=== PATIENT | male | born 1955 | race Two or more races ===

== ENCOUNTER 2017-02-26 15:49 | Emergency (ER) | payer OTHER ==
[2017-02-26 17:31] VITALS: BP 132/74; PULSE 70; TEMP 97.8; BMI 31.5
[2017-02-26] MEDS ORDERED: KETOROLAC TROMETHAMINE 60 MG/2 ML VIAL IM ONE ×2 (18:15→18:17)
[2017-02-26] MEDS ORDERED: KETOROLAC TROMETHAMINE 60 MG/2 ML VIAL ONE (18:17)
[2017-02-26] MEDS ORDERED: KETOROLAC TROMETHAMINE 30 MG/1 ML VIAL ONE (18:19)
--- NOTE | 2017-02-26 18:23 | PDOC ---
"History of Present Illness - General Chief Complaint: Pain, Acute Stated Complaint: RT SHOULDER PAIN Time Seen by Provider: 02/26/17 18:01 History Source: Patient Exam Limitations: No Limitations - History of Present Illness Initial Comments: 02/26/17 18:17 My Chief Complaint: Right upper torso pain radiates to right chest wall since yesterday, nonproductive cough times. History of present illness: Patient is a 62-year-old male with a history of diabetes, asthma LA with pacemaker here today complaining of right lateral upper torso pain that radiates to right chest wall with movement. Patient reports that pain is worse with movement of the right arm or torso or deep breathing. Patient denies any shortness of breath. Patient has had moist cough for 4-5 days. Patient reports having a fever 1 week ago. Reports lifting 2 cases of water a 24 bottles yesterday. Patient reports that he went to work today due to some minor lifting the pain got worse as day progressed. Patient denies any neck pain or any radiation of pain down right arm. Patient denies any wheezing. 02/26/17 18:24 Timing/Duration: getting worse (RT. LATERAL TORSO) Severity: moderate Associated Symptoms: reports: cough (cough 4-5 days, productive 2 days ago greenish ), other (rt. upper torso tenderness radiates to rt. chest wall intermittent with movement) Past History - Past Medical History Allergies/Adverse Reactions: Allergies Allergy/AdvReac Type Severity Reaction Status Date / Time No Known Allergies Allergy Verified 02/26/17 17:24 Home Medications: Ambulatory Orders Insulin Aspart [Novolog Flexpen] 100 unit SQ ASDIR 07/10/15 Albuterol Sulfate Inhaler - [Ventolin HFA Inhaler -] 2 inh PO Q4H PRN #1 inh MDD 6 02/26/17 Canagliflozin [Invokana] 100 mg PO ASDIR 02/26/17 Cyclobenzaprine HCl [Flexeril 10 mg] 10 mg PO Q8H PRN #20 tablet MDD 3 02/26/17 Oxycodone HCl/Acetaminophen [Percocet 5-325 mg Tablet] 1 tab PO Q6H PRN #10 tablet MDD 4 02/26/17 Asthma: Yes Cardiac Disorders: Yes Diabetes: Yes - Surgical History Cardiac Surgery: Yes (PACEMAKER) - Immunization History Immunization Up to Date: Yes - Suicide/Smoking/Psychosocial Hx Smoking History: Never smoked Have you smoked in the past 12 months: No Information on smoking cessation initiated: No Hx Alcohol Use: No Drug/Substance Use Hx: No Substance Use Type: Alcohol Hx Substance Use Treatment: No Review of Systems - Review of Systems Able to Perform ROS?: Yes Constitutional: No: Symptoms Reported HEENTM: No: Symptoms Reported Respiratory: Yes: Cough (for 4-5 days ), Productive cough (2 days greenish ) Cardiac (ROS): Yes: Chest Pain (rt. upper chest wall with movement ) ABD/GI: No: Symptoms Reported : No: Symptoms Reported Musculoskeletal: Yes: Muscle Pain (rt. upper torso) Integumentary: No: Symptoms Reported Neurological: No: Symptoms reported *Physical Exam - Vital Signs Last Vital Signs Temp Pulse Resp BP Pulse Ox 97.8 F 70 16 132/74 100 02/26/17 17:24 02/26/17 17:24 02/26/17 17:24 02/26/17 17:24 02/26/17 17:24 - Physical Exam Comments: 02/26/17 18:26 General Appearance: Yes: Appropriately Dressed HEENT: positive: Normal ENT Inspection Neck: negative: Lymphadenopathy (R), Lymphadenopathy (L) Respiratory/Chest: positive: Chest Tender (right upper chest wall ), Lungs Clear , Normal Breath Sounds. negative: Respiratory Distress, Accessory Muscle Use, Labored Respiration, Rapid RR, Decreased Breath Sounds, Crackles, Rales, Rhonchi , Stridor, Wheezing, Hyperresonant, Dullness Cardiovascular: positive: Regular Rhythm, Regular Rate, S1, S2 Musculoskeletal: positive: Normal Inspection, Other (rt.lateral torso tenderness ). negative: CVA Tenderness, CVA Tenderness (R), CVA Tenderness (L), Decreased Range of Motion, Vertebral Tenderness Integumentary: positive: Normal Color Neurologic: positive: Fully Oriented, Alert, Responsive Medical Decision Making - Medical Decision Making 02/26/17 18:23 Patient is a 62-year-old male with a history of diabetes, LA with pacemaker here today complaining of right lateral upper torso pain that radiates to right chest wall with movement. Patient reports that pain is worse with movement of the right arm or torso or deep breathing. Patient denies any shortness of breath. Patient has had moist cough for 4-5 days. Patient reports having a fever 1 week ago. Reports lifting 2 cases of water a 24 bottles yesterday. Patient reports that he went to work today due to some minor lifting the pain got worse as day progressed. Patient denies any neck pain or any radiation of pain down right arm. Patient denies any wheezing. rt. upper torso muscular tenderness r/o infiltrate PLAN: toradol 30 mg IM now xray Chest PA/lateral negative for infiltrate flexeril 10 mg po now than every 8 hrs prn muscle spasm # 20 percocet 5mg /325 mg every 6 hrs prn # 10 tabs follow up PCP this week Search Terms: Boom Live, 1955 Search Date: 02/26/2017 06:56:41 PM This report was requested by: Shital Fairchild | Reference #: [id number] Others' Prescriptions Patient Name: Boom Live Date: 1955 Address: [address] [place] [address] Sex: Male Rx Written Rx Dispensed Drug Quantity Days Supply Prescriber Name 11/09/2016 01/31/2017 tramadol hcl 50 mg tablet 60 30 Petros Vicente MD *DC/Admit/Observation/Transfer Diagnosis at time of Disposition: Tenderness of torso, Chest wall discomfort - Discharge Dispostion Disposition: HOME Condition at time of disposition: Stable - Prescriptions Prescriptions: Cyclobenzaprine HCl [Flexeril 10 mg] 10 mg PO Q8H PRN #20 tablet MDD 3 PRN Reason: Muscle Spasms Oxycodone HCl/Acetaminophen [Percocet 5-325 mg Tablet] 1 tab PO Q6H PRN #10 tablet MDD 4 PRN Reason: Severe Pain Albuterol Sulfate Inhaler - [Ventolin HFA Inhaler -] 2 inh PO Q4H PRN #1 inh MDD 6 PRN Reason: Short Of Breath/Wheezing - Referrals Referrals: Petros Vicente MD [Primary Care Provider] - - Patient Instructions Additional Instructions: Follow up with your primary care provider this week as previously scheduled Return to emergency room if symptoms worsen increased pain any shortness of breath or difficulty breathing Take ibuprofen as needed as directed by mechanical manufacturing engineer for L to moderate pain as needed avoid any strenuous activities or exercise Patient Voiced understanding of discharge instructions and all questions were answered Thank you for choosing [facility] emergency room for your medical needs today - Post Discharge Activity Forms/Work/School Notes: Back to Work"
[2017-02-26] MEDS ORDERED: CYCLOBENZAPRINE HCL 10 MG TABLET (FP) PO ONE (18:42)
[2017-02-26] MEDS ORDERED: CYCLOBENZAPRINE HCL 10 MG TABLET (FP) ONE (18:45)
== END 2017-02-26 18:58 | disposition home or self-care (01) ==
LOC: JERFT 15:49 → JER 15:49 → JERFT 18:58
PROC: 3E0233Z Introduction of Anti-inflammatory into Muscle, Percutaneous Approach (ICD-10-PCS; principal; 2017-02-26)
DX: R07.89 Other chest pain (principal); J45.909 Unspecified asthma, uncomplicated; E11.9 Type 2 diabetes mellitus without complications; Z79.4 Long term (current) use of insulin; I25.2 Old myocardial infarction; Z95.0 Presence of cardiac pacemaker
CPT/HCPCS: 71020-TC; 96372; 99281-25

== ENCOUNTER 2018-01-01 16:41 | Emergency (ER) | payer OTHER ==
[2018-01-01 16:55] VITALS: BMI 31.4
[2018-01-01] MEDS ORDERED: ACETAMINOPHEN 325 MG TABLET (FP) PO ONE (16:55)
--- NOTE | 2018-01-01 17:44 | PDOC ---
Attending Attestation - Resident Resident Name: Mir Bowles - ED Attending Attestation I have performed the following: I have examined & evaluated the patient, The case was reviewed & discussed with the resident, I agree w/resident's findings & plan, Exceptions are as noted
[2018-01-01 17:45] LABS: BASO % 0.7 % (0-2.0); EOS % 0.1 % (0-4.5); HEMATOCRIT 40.6 % (35.4-49); HEMOGLOBIN 13.8 GM/dL (11.7-16.9); LYMPH % 9.7 % (8-40); MCH 32.3 pg (25.7-33.7); MEAN PLT VOLUME 8.2 fl (7.5-11.1); MONO % 7.8 % (3.8-10.2); NEUT % 81.7 % (42.8-82.8); PLATELET COUNT 191 K/MM3 (134-434); RBC 4.28 M/mm3 (4.00-5.60); RDW 13.6 % (11.9-15.9); WHITE BLOOD COUNT 12.7 K/mm3 (4.0-10.0)
[2018-01-01 18:11] LABS: ALBUMIN 4.1 g/dl (3.4-5.0); ALK PHOS 71 U/L (45-117); ANION GAP 9 MMOL/L (8-16); BILIRUBIN,TOTAL 0.8 mg/dL (0.2-1.0); BLOOD UREA NITROGEN 11 mg/dL (7-18); CALCIUM 8.7 mg/dL (8.5-10.1); CHLORIDE 107 mmol/L (98-107); CO2 25 mmol/L (21-32); CREATININE 0.7 mg/dL (0.7-1.3); GLUCOSE,RANDOM 108 mg/dL (74-106); POTASSIUM 4.3 mmol/L (3.5-5.1); SGOT/AST 17 U/L (15-37); SGPT/ALT 22 U/L (12-78); SODIUM 141 mmol/L (136-145); TOT PROT 7.3 g/dl (6.4-8.2)
--- NOTE | 2018-01-01 18:32 | PDOC ---
History of Present Illness - General Chief Complaint: SIRS, Suspected/Possible Stated Complaint: SHORTNESS OF BREATH Time Seen by Provider: 01/01/18 17:03 History Source: Patient, Spouse Exam Limitations: No Limitations - History of Present Illness Initial Comments: 62 y/o male presenting to [facility] ER via private auto complaining of a productive cough for the past 3 days. Initially producing clear sputum which changed to a dark color yesterday. Further endorses subjective fever, diaphoresis, occasional palpitations, body aches, and general malaise. Reports a history of pneumonia requiring hospital admission here twice in the past two years; last D/ C summary in [employer] dated 21 June 2014. Pt denies smoking history or other pulmonary conditions. PMH significant for DM. Pt is s/p ablation with AICD placed for SVT. Pacer model [id number]. Pacer Serial [id number]. Past History - Past Medical History Allergies/Adverse Reactions: Allergies Allergy/AdvReac Type Severity Reaction Status Date / Time No Known Allergies Allergy Verified 01/01/18 16:51 Home Medications: Ambulatory Orders Insulin Aspart [Novolog Flexpen] 100 unit SQ ASDIR 07/10/15 Canagliflozin [Invokana] 100 mg PO ASDIR 02/26/17 Methocarbamol [Robaxin -] 500 mg PO TID #30 tablet 11/06/17 Albuterol Sulfate Inhaler - [Ventolin HFA Inhaler -] 1 puff IH Q4H PRN #1 inhaler 01/01/18 Azithromycin [Zithromax 250mg Tablets -] 250 mg PO UTDICT #6 tab 01/01/18 Asthma: Yes Cardiac Disorders: Yes COPD: No DVT: No Dementia: No Diabetes: Yes - Surgical History Cardiac Surgery: Yes (AICD) - Immunization History Immunization Up to Date: Yes - Suicide/Smoking/Psychosocial Hx Smoking History: Never smoked Have you smoked in the past 12 months: No Information on smoking cessation initiated: No Hx Alcohol Use: No Drug/Substance Use Hx: No Substance Use Type: Alcohol Hx Substance Use Treatment: No Respiratory Specific PMHX - Complaint Specific PMHX Angina: No Bronchitis: No Pneumonia: Yes Pulmonary Embolus: No TB (Tuberculosis): No Review of Systems - Review of Systems Constitutional: Yes: Diaphoresis, Fever, Malaise. No: Chills HEENTM: No: Nose Congestion, Throat Pain Respiratory: Yes: Cough, Shortness of Breath, Productive cough. No: Hemoptysis Cardiac (ROS): Yes: Palpitations ABD/GI: No: Constipated, Diarrhea, Nausea, Vomiting : No: Burning, Dysuria Musculoskeletal: Yes: Other (Body aches) Integumentary: No: Rash Hematologic/Lymphatic: No: Easy Bleeding, Easy Bruising *Physical Exam - Vital Signs Last Vital Signs Temp Pulse Resp BP Pulse Ox 100.8 F H 96 H 20 147/82 100 01/01/18 16:53 01/01/18 16:53 01/01/18 16:53 01/01/18 16:53 01/01/18 17:55 - Physical Exam Comments: Constitutional: Well-developed, well-nourished, non-toxic male in no acute distress. Found semi-fowlers in hospital bed. Alert and oriented x4. Answered all questions appropriately and completely. Speech was non-labored, non- pressured. Coughing during interview. HEENT: Normocephalic. No obvious external signs of trauma. Hearing grossly normal. No nasal discharge. Neck is supple, trachea is midline. Cardiovascular: Regular rate and regular rhythm. No murmur, rubs, clicks, or gallops. Peripheral pulses: Radial pulses full. Respiratory: Breathing unlabored. Productive cough. Equal chest rise and fall. Diffuse rhonchi and mild wheezing with bronchial breath sounds and egophony in posterior left lower lobe. Gastrointestinal: abdomen is soft, non-tender, non-distended. Neuro: Alert and oriented. Moving all four extremities spontaneously. Skin: Warm, dry, and intact. No bruising, rashes, or other lesions. Psych: Affect: appropriate. Mood: normal ED Treatment Course - LABORATORY CBC & Chemistry Diagram: 01/01/18 17:30 01/01/18 17:30 - ADDITIONAL ORDERS Additional order review: Laboratory Results 01/01/18 01/01/18 17:42 17:30 Sodium 141 Potassium 4.3 Chloride 107 Carbon Dioxide 25 Anion Gap 9 BUN 11 Creatinine 0.7 Creat Clearance w eGFR > 60 Random Glucose 108 H D Lactic Acid 0.8 Calcium 8.7 Total Bilirubin 0.8 AST 17 D ALT 22 Alkaline Phosphatase 71 Total Protein 7.3 Albumin 4.1 01/01/18 17:30 RBC 4.28 MCV 95.0 MCHC 34.0 RDW 13.6 MPV 8.2 Neutrophils % 81.7 Lymphocytes % 9.7 Monocytes % 7.8 Eosinophils % 0.1 Basophils % 0.7 - RADIOLOGY Radiology Studies Ordered: Category Date Time Status CHEST PA & LAT [RAD] Stat Radiology 01/01/18 17:26 Taken - Medications Given in the ED: ED Medications Discontinued Medications Generic Name Dose Route Start Last Admin Trade Name Freq PRN Reason Stop Dose Admin Acetaminophen 975 mg 01/01/18 16:55 01/01/18 16:57 Tylenol - PO 01/01/18 16:56 975 mg NOW ONE Administration Medical Decision Making - Medical Decision Making *Reviewed nursing notes and prior visit documentation. 62 y/o male complaining of productive cough with dark colored sputum and subjective fever, diaphoresis, body aches, and general malaise. H/o pneumonia, states this is similar. Febrile to 100.8. Vitals revealed borderline tachycardia without hypotension. Physical exam revealed rhonchorous and mild wheezing throughout with possible consolidation in lower left posterior lung field. Suspect pneumonia versus acute bronchitis versus URI. Low suspicion for sepsis. Will order CXR, CBC, CMP, lactic acid, and blood cultures. Acetaminophen ordered prior to my evaluation. CXR unremarkable for focal consolidation. No interval change from prior radiograph dated 02/26/2017. CBC unremarkable for leukocytosis. CMP unremarkable for derangement. Lactic acid not elevated. Blood cultures obtained. Continue to suspect acute bronchitis. Will prescribed Z-pack and albuterol inhaler. Discussed imaging and laboratory results with pt. Answered all questions. Provided return precautions. Pt expressed verbal understanding and agreement with plan to discharge home with outpatient PCP follow up. *DC/Admit/Observation/Transfer Diagnosis at time of Disposition: Cough - Discharge Dispostion Disposition: HOME Condition at time of disposition: Good Decision to Admit order: No - Prescriptions Prescriptions: Albuterol Sulfate Inhaler - [Ventolin HFA Inhaler -] 1 puff IH Q4H PRN #1 inhaler PRN Reason: Shortness Of Breath Azithromycin [Zithromax 250mg Tablets -] 250 mg PO UTDICT #6 tab - Referrals Referrals: Petros Vicente MD [Primary Care Provider] - - Patient Instructions Printed Discharge Instructions: DI for Cough -- Adult Additional Instructions: Your chest xray does not show signs of pneumonia today. Your cough is may be bronchitis or an occult pneumonia. I have sent a prescription for a Z-pack and an albuterol inhaler to [facility]. Please take as directed on the package. Follow up with your primary care doctor within the next 2-3 days. You will need to call the office to make an appointment. Go to your nearest ER if your symptoms worsen or you feel like you condition requires additional emergency evaluation. Print Language: [place] - Post Discharge Activity Forms/Work/School Notes: Back to Work
[2018-01-01] MEDS ORDERED: IBUPROFEN 600 MG TABLET (FP) PO ONE ×2 (20:09)
[2018-01-01 20:13] VITALS: BP 132/82; PULSE 100; TEMP 100.5
== END 2018-01-01 20:13 | disposition home or self-care (01) ==
LOC: JER 16:41
DX: R05 Cough (principal); E11.9 Type 2 diabetes mellitus without complications; Z79.84 Long term (current) use of oral hypoglycemic drugs; J45.909 Unspecified asthma, uncomplicated; I25.10 Atherosclerotic heart disease of native coronary artery without angina pectoris; Z95.810 Presence of automatic (implantable) cardiac defibrillator; Z87.01 Personal history of pneumonia (recurrent)
CPT/HCPCS: 36415; 71046-TC-FY; 80053; 83605; 85025; 87040; 99284-25

== ENCOUNTER 2018-02-12 11:19 | Emergency (ER) | payer OTHER ==
[2018-02-12 11:23] VITALS: BP 138/77; PULSE 81; TEMP 98.6; BMI 31.4
[2018-02-12] MEDS ORDERED: KETOROLAC TROMETHAMINE 60 MG/2 ML VIAL IM ONE (12:04)
[2018-02-12] MEDS ORDERED: KETOROLAC TROMETHAMINE 60 MG/2 ML VIAL ONE (12:07)
--- NOTE | 2018-02-12 12:31 | PDOC ---
History of Present Illness - General Chief Complaint: Pain Stated Complaint: PAIN ,SCIATICA Time Seen by Provider: 02/12/18 12:04 - History of Present Illness Initial Comments: 02/12/18 12:25 36-year-old male with a past medical history significant for diabetes presents for evaluation of 1 week of atraumatic lower back pain with posterior lateral right leg radiculopathy. He denies loss of bowel or bladder function. Past History - Past Medical History Allergies/Adverse Reactions: Allergies Allergy/AdvReac Type Severity Reaction Status Date / Time No Known Allergies Allergy Verified 02/12/18 11:20 Home Medications: Ambulatory Orders Insulin Aspart [Novolog Flexpen] 100 unit SQ ASDIR 07/10/15 Canagliflozin [Invokana] 100 mg PO ASDIR 02/26/17 Methocarbamol [Robaxin -] 500 mg PO TID #30 tablet 11/06/17 Albuterol Sulfate Inhaler - [Ventolin HFA Inhaler -] 1 puff IH Q4H PRN #1 inhaler 01/01/18 Methylprednisolone [Medrol Dose Néstor] 4 mg PO ASDIR #21 tablet 02/12/18 Asthma: Yes Cardiac Disorders: Yes COPD: No DVT: No Dementia: No Diabetes: Yes - Surgical History Cardiac Surgery: Yes (AICD) - Immunization History Immunization Up to Date: Yes - Suicide/Smoking/Psychosocial Hx Smoking History: Never smoked Have you smoked in the past 12 months: No Information on smoking cessation initiated: No Hx Alcohol Use: No Drug/Substance Use Hx: No Substance Use Type: Alcohol Hx Substance Use Treatment: No Review of Systems - Review of Systems Musculoskeletal: Yes: Back Pain All Other Systems: Reviewed and Negative *Physical Exam - Vital Signs Last Vital Signs Temp Pulse Resp BP Pulse Ox 98.6 F 81 18 138/77 100 02/12/18 11:20 02/12/18 11:20 02/12/18 11:20 02/12/18 11:20 02/12/18 11:20 - Physical Exam Comments: Lumbar spine skin color and temperature are normal range of motion is slightly decreased is moderate paralumbar sacral right side of musculature spasm and tenderness. 5 out of 5 strength in bilateral lower extremities without gross sensorimotor deficits. Positive straight leg raise test on the right negative on the left. Thighs and calves are soft and nontender. 02/12/18 12:26 ED Treatment Course - Medications Given in the ED: ED Medications Discontinued Medications Generic Name Dose Route Start Last Admin Trade Name Rodrigo PRN Reason Stop Dose Admin Ketorolac Tromethamine 60 mg 02/12/18 12:04 02/12/18 12:14 Toradol Injection - IM 02/12/18 12:05 60 mg ONCE ONE Administration Medical Decision Making - Medical Decision Making Have a long discussion with the patient regarding his diabetes. He does take home and [place] does check his sugars daily. I explained to him that the Medrol Dosepak is the best option however will raise his serum glucose. He understands check it and increase his insulin dose accordingly. A blood sugar over 300 he comes back to the emergency room for treatment. 02/12/18 12:27 *DC/Admit/Observation/Transfer Diagnosis at time of Disposition: Lumbar radicular pain - Discharge Dispostion Disposition: HOME Condition at time of disposition: Stable Decision to Admit order: No - Prescriptions Prescriptions: Methylprednisolone [Medrol Dose Néstor] 4 mg PO ASDIR #21 tablet - Referrals Referrals: Petros Vicente MD [Primary Care Provider] - Jamie Mayers MD [Staff Physician] - - Patient Instructions Printed Discharge Instructions: Lumbar Radiculopathy, DI for Lumbar Radiculopathy Additional Instructions: Return to the emergency room should symptoms worsen or go unresolved. Please remember that the steroid pack that you were prescribed will increase her blood sugar and its importance you to check her blood sugar multiple times a day around meals and adjust her insulin dose accordingly. Return to the emergency room should her blood glucose rise above 300 and you cannot lower. Follow-up with spine surgery once 2 days for further evaluation and treatment options. - Post Discharge Activity
== END 2018-02-12 12:38 | disposition home or self-care (01) ==
LOC: JERFT 11:19
PROC: 3E0233Z Introduction of Anti-inflammatory into Muscle, Percutaneous Approach (ICD-10-PCS; principal; 2018-02-12)
DX: M54.16 Radiculopathy, lumbar region (principal); E11.9 Type 2 diabetes mellitus without complications; Z79.84 Long term (current) use of oral hypoglycemic drugs; J45.909 Unspecified asthma, uncomplicated; I25.10 Atherosclerotic heart disease of native coronary artery without angina pectoris; Z95.810 Presence of automatic (implantable) cardiac defibrillator
CPT/HCPCS: 96372; 99281-25

== ENCOUNTER 2018-06-07 21:20 | Emergency (ER) | payer SELFPAY ==
[2018-06-07 22:00] VITALS: BP 145/86; PULSE 85; TEMP 99.9; BMI 32.3
[2018-06-07] MEDS ORDERED: OSELTAMIVIR PHOSPHATE 75 MG CAPSULE PO ONE (23:36)
[2018-06-07] MEDS ORDERED: ACETAMINOPHEN 325 MG TABLET (FP) PO ONE (23:42)
--- NOTE | 2018-06-07 23:49 | PDOC ---
History of Present Illness - General Chief Complaint: Respiratory Stated Complaint: BREATHING PROBLEM Time Seen by Provider: 06/07/18 23:13 History Source: Patient Exam Limitations: No Limitations Past History - Past Medical History Allergies/Adverse Reactions: Allergies Allergy/AdvReac Type Severity Reaction Status Date / Time No Known Allergies Allergy Verified 02/12/18 11:20 Home Medications: Ambulatory Orders Insulin Aspart [Novolog Flexpen] 100 unit SQ ASDIR 07/10/15 Canagliflozin [Invokana] 100 mg PO ASDIR 02/26/17 Insulin Glargine,Hum.rec.anlog [Lantus Solostar PEN (NF)] 0 units SQ HS Oseltamivir Phosphate [Tamiflu] 75 mg PO BID #10 capsule 06/07/18 Tramadol HCl [Tramadol HCl ER] 200 mg PO ASDIR 06/07/18 Asthma: Yes Cardiac Disorders: Yes COPD: No DVT: No Dementia: No Diabetes: Yes - Surgical History Cardiac Surgery: Yes (AICD) - Immunization History Immunization Up to Date: Yes - Suicide/Smoking/Psychosocial Hx Smoking History: Never smoked Have you smoked in the past 12 months: No Hx Alcohol Use: No Drug/Substance Use Hx: No Substance Use Type: Alcohol Hx Substance Use Treatment: No Respiratory Specific PMHX - Complaint Specific PMHX Angina: No Bronchitis: No Pneumonia: Yes Pulmonary Embolus: No TB (Tuberculosis): No *Physical Exam - Vital Signs Last Vital Signs Temp Pulse Resp BP Pulse Ox 99.9 F H 85 20 145/86 97 06/07/18 21:56 06/07/18 21:56 06/07/18 21:56 06/07/18 21:56 06/07/18 21:56 - Physical Exam General Appearance: No: Apparent Distress HEENT: positive: Pharynx Normal Respiratory/Chest: positive: Lungs Clear, Normal Breath Sounds. negative: Respiratory Distress Cardiovascular: positive: Regular Rhythm, Regular Rate, S1, S2. negative: Murmur Gastrointestinal/Abdominal: positive: Normal Bowel Sounds, Soft. negative: Tender, Distended, Guarding, Rebound Integumentary: positive: Normal Color Neurologic: positive: Alert, Normal Mood/Affect Moderate Sedation - Procedure Monitoring Vital Signs: Procedure Monitoring Vital Signs Temperature 99.9 F H 06/07/18 21:56 Pulse Rate 85 06/07/18 21:56 Respiratory Rate 20 06/07/18 21:56 Blood Pressure 145/86 06/07/18 21:56 O2 Sat by Pulse Oximetry (%) 97 06/07/18 21:56 Medical Decision Making - Medical Decision Making 63 y/o M with hx of SVT s/p ablation and then PPM, DM presents with fever, body aches, chills, cough with yellow phlegm x 3 days. Denies sob, cp, abd pain, n/v/ d. Patient found to be flu positive Given Tylenol and Tamiflu (though past 48 hours, given patient with hx of DM, will start treatment) Otherwise appears well Stable for d/c 06/07/18 23:42 *DC/Admit/Observation/Transfer Diagnosis at time of Disposition: Influenza A - Discharge Dispostion Disposition: HOME Condition at time of disposition: Stable Decision to Admit order: No - Prescriptions Prescriptions: Oseltamivir Phosphate [Tamiflu] 75 mg PO BID #10 capsule - Referrals Referrals: Petros Vicente MD [Primary Care Provider] - 2 Days - Patient Instructions Printed Discharge Instructions: DI for Influenza -- Adult Additional Instructions: Thank you for choosing [facility]. It was a pleasure taking care of you. You were found to have flu This condition can spread by cough Take Tylenol as needed for fever Take Tamiflu as prescribed Wash hands Stay hydrated - at least 2L of water daily Follow-up with your PCP in 2-3 days. Return to the Emergency Department if your symptoms worsen or persist or have other concerning symptoms. - Post Discharge Activity
[2018-06-08] MEDS ORDERED: ACETAMINOPHEN 325 MG TABLET (FP) ONE (00:04)
== END 2018-06-08 00:10 | disposition home or self-care (01) ==
LOC: JERFT 21:20
DX: J09.X2 Influenza due to identified novel influenza A virus with other respiratory manifestations (principal); E11.9 Type 2 diabetes mellitus without complications; Z79.4 Long term (current) use of insulin; Z86.79 Personal history of other diseases of the circulatory system; Z95.810 Presence of automatic (implantable) cardiac defibrillator
CPT/HCPCS: 87804; 99281-25

== ENCOUNTER 2018-06-15 13:10 | Emergency (ER) | payer SELFPAY ==
--- NOTE | 2018-06-15 13:17 | PDOC ---
Rapid Medical Evaluation Time Seen by Provider: 06/15/18 13:16 Medical Evaluation: Allergies Allergy/AdvReac Type Severity Reaction Status Date / Time No Known Allergies Allergy Verified 06/15/18 13:16 06/15/18 13:19 I have performed a brief in-person evaluation of this patient. Chief Complaint: Insulin-dependent diabetic, just completed course of Tamiflu, now with persistent cough, SOB, bilat rib pain. Sent by PCP for r/o PNA. Pertinent physical exam findings: Coughing. No tachypnea or hypoxia, speaking in full sentences. No wheezing or ronchi. I have ordered the following: EKG, CXR, fingerstick blood glucose. Patient will proceed to the ED for further evaluation. Discharge Disposition - Diagnosis Influenza with respiratory manifestation - Referrals - Patient Instructions - Post Discharge Activity
[2018-06-15 13:23] VITALS: BMI 31.4
--- NOTE | 2018-06-15 13:27 | PDOC ---
History of Present Illness - General Chief Complaint: Respiratory Stated Complaint: SENT BY PCP // R/O PNEUMONIA Time Seen by Provider: 06/15/18 13:16 History Source: Patient Exam Limitations: No Limitations - History of Present Illness Initial Comments: 06/15/18 14:19 HPI: This 63-year-old male presents to the emergency room per his doctor's request for a chest x-ray. Patient was seen and found to have influenza one week ago. He is now with continual cough, hoarseness, and does not feel much better. He has completed Tamiflu. States she's had low-grade fevers. He's been staying home resting. Chief Compliant: Cough and hoarseness of breath Pain location: Duration: Modifying factors: Quality: Radiating: Severity: Time: PMH: Diabetes permanent pacemaker FH: Pt has not recently traveled outside the country in the last 30 days. Pt has not been in contact with people who have traveled out of the country, in contact with people who have been ill with fever, n, v, d. SH: smoking use: NONE illicit drug use: NONE alcohol use: NONE employment/educational status: Works at [employer] in the [employer] sexual history: PSH: Home med use noted on JUN Allergies: NKA Immunizations: Not receive the flu vaccine PCP: Dr. Gracia Past History - Past Medical History Allergies/Adverse Reactions: Allergies Allergy/AdvReac Type Severity Reaction Status Date / Time No Known Allergies Allergy Verified 06/15/18 13:16 Home Medications: Ambulatory Orders Insulin Aspart [Novolog Flexpen] 100 unit SQ ASDIR 07/10/15 Canagliflozin [Invokana] 100 mg PO ASDIR 02/26/17 Insulin Glargine,Hum.rec.anlog [Lantus Solostar PEN (NF)] 15 units SQ HS Azithromycin [Zithromax 250mg Tablets -] 250 mg PO UTDICT #6 tab 06/15/18 Methylprednisolone [Medrol Dose Néstor] 4 mg PO ASDIR #21 tablet 06/15/18 Asthma: Yes Cardiac Disorders: Yes COPD: No DVT: No Dementia: No Diabetes: Yes - Surgical History Cardiac Surgery: Yes (AICD) - Immunization History Immunization Up to Date: Yes - Suicide/Smoking/Psychosocial Hx Smoking History: Never smoked Have you smoked in the past 12 months: No Hx Alcohol Use: No Drug/Substance Use Hx: No Substance Use Type: Alcohol Hx Substance Use Treatment: No Respiratory Specific PMHX - Complaint Specific PMHX Angina: No Bronchitis: No Pneumonia: Yes Pulmonary Embolus: No TB (Tuberculosis): No Review of Systems - Review of Systems Able to Perform ROS?: Yes Comments:: 06/15/18 14:21 General statement: Shortness breath and cough Hematology: neg history of bleeding/blood thinners Skin: Neg for lesions, rash, bruising. HEENT: No ear pain, nasal congestion, positive cough with hoarseness, Respiratory: Mild shortness of breath on exertion as well as some hoarseness and coughing Cardiac: Neg chest pain GI: Neg pain, n/v : Neg problems on voiding MS: Neg for joint pain/stiffness, no edema Neuro: Neg for LOC, weakness, Endocrine: Neg for excess thirst/hunger, cold/heat intolerance, excess sweating Allergies: Neg for allergies *Physical Exam - Vital Signs Last Vital Signs Temp Pulse Resp BP Pulse Ox 98.2 F 65 22 H 170/100 96 06/15/18 13:21 06/15/18 13:21 06/15/18 13:21 06/15/18 13:21 06/15/18 13:21 - Physical Exam Comments: 06/15/18 14:22 General Appearance: This ill appearing V/S: hemodynamically stable, afebrile Skin: WNL of pt's skin color, no signs of pallor, mottling, cyanosis Head:symmetrical Eyes: EOM's intact, PERRLA Ears: denies pain Nose: patent with congestion Throat: lips, teeth, gums, tongue, buccal mucos pink and moist oropharynx redness Lungs: Chest symmetry equal. Cap refill <3 seconds. Lung sounds with some hoarseness to the oropharynx and upper airways. No wheezing heard. Cardiac: PMI at R 4MCL space, pos S1 and S2, regular rate. Abdomen: Soft, round, nontender : Not observed Muscularskeletal: Gait steady, ambulated in to ER, no edema +PMS Neuro: AAOx3, cognitively intact, speech clear and appropriate. Moderate Sedation - Procedure Monitoring Vital Signs: Procedure Monitoring Vital Signs Temperature 98.2 F 06/15/18 13:21 Pulse Rate 65 06/15/18 13:21 Respiratory Rate 22 H 02/15/19 13:21 Blood Pressure 170/100 06/15/18 13:21 O2 Sat by Pulse Oximetry (%) 96 06/15/18 13:21 Heart Score/ECG Review - Electrocardiogram EKG: Normal - Age Age: 45-65 - Risk Factors Risk Factors Heart Score: Yes Hx Hypertension, Yes Hx Diabetes Based on the list above the patient has:: 1-2 risk factors - ECG Intrepretation Rhythm: Regular Rhythm Comment:: 06/15/18 14:24 Patient's EKG shows that he has an AV dual pacemaker rhythm at a rate of 60. I do see his pacemaker in place with wires located in his chest x-ray. His ventricular rate is 60 his WI interval is 186. His QRS duration is 182 and his QTC is 478. Medical Decision Making - Medical Decision Making 06/15/18 14:24 was initially seen and examined by myself. Patient is with a continuous influenza symptoms with some upper airway shortness of breath and some wheezing when coughing. He does not have any stridor, no respiratory distress, oxygen saturations 97%. He's on room air. He does have a mask on. He is here for a chest x-ray per his primary physician with the increase in some mild shortness of breath on exertion. Chest x-ray ordered and does not appear to be preliminarily with any pneumonia. Awaiting officials . EKG is obtained and noted to have a AV paced mode a rate of 60. Blood pressure 1. was noted to be elevated at 170/100. Apparently this was happening while he was having some coughing. Patient's blood pressure is now 139 /70. He is not coughing at this time. I spoke with his primary physician and we discussed a treatment course of a Solu -Medrol pack, Zithromax, and have him follow back up in the office in one week. *DC/Admit/Observation/Transfer Diagnosis at time of Disposition: Influenza with respiratory manifestation, Bronchitis - Discharge Dispostion Disposition: HOME Condition at time of disposition: Stable Decision to Admit order: No - Prescriptions Prescriptions: Azithromycin [Zithromax 250mg Tablets -] 250 mg PO UTDICT #6 tab Methylprednisolone [Medrol Dose Néstor] 4 mg PO ASDIR #21 tablet - Referrals - Patient Instructions Printed Discharge Instructions: DI for Acute Bronchitis - Post Discharge Activity Forms/Work/School Notes: Back to Work
[2018-06-15 13:46] VITALS: TEMP 99
[2018-06-15 14:29] VITALS: BP 139/76; PULSE 60
--- NOTE | 2018-06-15 14:59 | EKG ---
Test Reason : Blood Pressure : / mmHG Vent. Rate : 060 BPM Atrial Rate : 060 BPM P-R Int : 186 ms QRS Dur : 182 ms QT Int : 478 ms P-R-T Axes : 109 -53 -89 degrees QTc Int : 478 ms AV dual-paced rhythm ABNORMAL ECG WHEN COMPARED WITH ECG OF 01-SEP-2014 09:23, VENT. RATE HAS DECREASED BY 37 BPM Confirmed by DEMETRIA ARAUZ MD ([id number]) on 06/15/2018 2:59:45 PM Referred By: Confirmed By:DEMETRIA ARAUZ MD
== END 2018-06-15 14:33 | disposition home or self-care (01) ==
LOC: JER 13:10
DX: J11.1 Influenza due to unidentified influenza virus with other respiratory manifestations (principal); E11.9 Type 2 diabetes mellitus without complications; Z79.4 Long term (current) use of insulin; Z95.0 Presence of cardiac pacemaker
CPT/HCPCS: 71046-TC-FY; 82962; 93005; 93010; 99284-25

== ENCOUNTER 2019-04-05 11:50 | Emergency (ER) | payer SELFPAY ==
[2019-04-05 12:00] VITALS: BP 141/81; PULSE 80; TEMP 98.8; BMI 32.1
[2019-04-05] MEDS ORDERED: ALBUTEROL SO4 2.5/IPRATROPIUM 0.5 INH SOL 3 ML VIAL.NEB. NEB ONE (12:27)
[2019-04-05] MEDS ORDERED: ACETAMINOPHEN 325 MG TABLET (FP) PO ONE (12:27)
[2019-04-05] MEDS ORDERED: guaiFENesin/CODEINE 10 ML UNIT-DOSE CUPS PO ONE (12:27)
--- NOTE | 2019-04-05 12:27 | PDOC ---
History of Present Illness - General Chief Complaint: Cold Symptoms Stated Complaint: COUGH Time Seen by Provider: 04/05/19 12:03 History Source: Patient Exam Limitations: No Limitations Past History - Travel Traveled outside of the country in the last 30 days: No Close contact w/someone who was outside of country & ill: No - Past Medical History Allergies/Adverse Reactions: Allergies Allergy/AdvReac Type Severity Reaction Status Date / Time No Known Allergies Allergy Verified 04/05/19 12:00 Home Medications: Ambulatory Orders Insulin Aspart [Novolog Flexpen] 100 unit SQ ASDIR 07/10/15 Canagliflozin [Invokana] 100 mg PO ASDIR 02/26/17 Insulin Glargine,Hum.rec.anlog [Lantus Solostar PEN (NF)] 15 units SQ HS Azithromycin [Zithromax 250mg Tablets -] 250 mg PO UTDICT #6 tab 06/15/18 Methylprednisolone [Medrol Dose Néstor] 4 mg PO ASDIR #21 tablet 06/15/18 Albuterol Sulfate Inhaler - [Ventolin HFA Inhaler -] 1 - 2 inh PO Q4H #1 inhaler 04/05/19 Asthma: Yes Cardiac Disorders: Yes COPD: No DVT: No Dementia: No Diabetes: Yes HTN: Yes - Surgical History Cardiac Surgery: Yes (AICD) - Immunization History Immunization Up to Date: Yes - Psycho Social/Smoking Cessation Hx Smoking History: Never smoked Have you smoked in the past 12 months: No Hx Alcohol Use: No Drug/Substance Use Hx: No Substance Use Type: Alcohol Hx Substance Use Treatment: No Review of Systems - Review of Systems Able to Perform ROS?: Yes Comments:: 04/05/19 12:57 CONSTITUTIONAL: Absent: fever, chills, diaphoresis, generalized weakness, malaise, loss of appetite HEENT: Absent: rhinorrhea, nasal congestion, throat pain, throat swelling, difficulty swallowing, mouth swelling, ear pain, eye pain, visual Changes CARDIOVASCULAR: Absent: chest pain, loss of consciousness, palpitations, irregular heart rate, peripheral edema RESPIRATORY: Present: Cough Absent: shortness of breath, dyspnea with exertion, orthopnea, wheezing, stridor, hemoptysis MUSCULOSKELETAL: Absent: myalgia, arthralgia, joint swelling SKIN: Absent: rash, itching, pallor NEUROLOGIC: Absent: headache, focal weakness or paresthesias, dizziness, unsteady gait, seizure, mental status changes, bladder or bowel incontinence PSYCHIATRIC: Absent: anxiety, depression, suicidal or homicidal ideation, hallucinations. Is the patient limited Kyrgyz proficient: No *Physical Exam - Vital Signs Last Vital Signs Temp Pulse Resp BP Pulse Ox 98.8 F 80 18 141/81 98 04/05/19 11:57 04/05/19 11:57 04/05/19 11:57 04/05/19 11:57 04/05/19 11:57 - Physical Exam 04/05/19 12:59 GENERAL: Well developed, well nourished. Awake and alert. No acute distress. Dry cough noted. HEENT: Normocephalic, atraumatic. PERRLA, EOMI. No conjunctival pallor. Sclera are non- icteric. Moist mucous membranes. Oropharynx is clear. NECK: Supple. Full ROM. No JVD. Carotid pulses 2+ and symmetric, without bruits. No thyromegaly. No lymphadenopathy. CARDIOVASCULAR: Regular rate and rhythm. No murmurs, rubs, or gallops. Distal pulses are 2+ and symmetric. PULMONARY: No evidence of respiratory distress. Lungs clear to auscultation bilaterally. No wheezing, rales or rhonchi. SKIN: Warm and dry. Normal capillary refill. No rashes. No jaundice. NEUROLOGICAL: Alert, awake, appropriate. Cranial nerves 2-12 intact. No deficits to light touch and temperature in face, upper extremities and lower extremities. No motor deficits in the in face, upper extremities and lower extremities. Normoreflexic in the upper and lower extremities. Normal speech. Toes are down- going bilaterally. Gait is normal without ataxia. PSYCHIATRIC: Cooperative. Good eye contact. Appropriate mood and affect. ED Treatment Course - RADIOLOGY Radiology Studies Ordered: Category Date Time Status CHEST PA & LAT [RAD] Stat Radiology 04/05/19 12:02 Completed Medical Decision Making - Medical Decision Making 04/05/19 12:59 The patient is a 64-year-old male past medical history of pacemaker, insulin- dependent diabetes, presents to the ER today for cough. He states that his cough is been going on for about 2 to 3 days. He saw his primary care doctor this morning who advised him to come to the ER for a chest x-ray given his cough. He states that he has a dry cough and he has been feeling dizzy due to all the coughing. Denies fevers, chills, earache, sore throat, chest pain, difficulty breathing, nausea vomiting and diarrhea. He states that his primary care doctor already sent him prescriptions for amoxicillin, methylprednisone, Mucinex to his pharmacy for his symptoms. A/P: Bronchitis On exam lungs are clear to auscultation bilaterally with no wheezes rales or rhonchi. Good aeration of the bases. Patient unable to take a deep breath without coughing. Chest x-ray is negative for acute pathology as read by Dr. East. Symptoms improved after DuoNeb and Robitussin. Will add an albuterol inhaler to patient's medications. Discharge home with symptomatic relief and primary care follow-up. Likely bronchitis. I discussed the physical exam findings, ancillary test results and final diagnoses with the patient. I answered all of the patient's questions. The patient was satisfied with the care received and felt comfortable with the discharge plan and treatment plan. The Patient agrees to follow up with the primary care physician/specialist within 24-72 hours. Return precautions were given. Discharge - Discharge Information Problems reviewed: Yes Clinical Impression/Diagnosis: Bronchitis Condition: Stable Disposition: HOME - Admission No - Follow up/Referral Referrals: Petros Vicente MD [Staff Physician] - - Patient Discharge Instructions Patient Printed Discharge Instructions: DI for Acute Bronchitis Additional Instructions: You have bronchitis Please use the inhaler every 4 hours for the next week to help with your cough. Your chest x-ray was negative for pneumonia. Please take the medication as prescribed by your primary care doctor. Please follow up with your primary care doctor in 1 week if your symptoms are not improving. Return to the emergency department if you have fevers, chills, worsening cough, chest pain, worsening shortness of breath or if you have any changes in your symptoms. - Post Discharge Activity Work/Back to School Note: Back to Work
[2019-04-05] MEDS ORDERED: guaiFENesin/CODEINE 5 ML UNIT-DOSE CUPS PO ONE (12:37)
[2019-04-05] MEDS ORDERED: ACETAMINOPHEN 325 MG TABLET (FP) ONE (12:37)
== END 2019-04-05 13:15 | disposition home or self-care (01) ==
LOC: JERFT 11:50
PROC: 3E0F7GC Introduction of Other Therapeutic Substance into Respiratory Tract, Via Natural or Artificial Opening (ICD-10-PCS; principal; 2019-04-05)
DX: J40 Bronchitis, not specified as acute or chronic (principal); I25.10 Atherosclerotic heart disease of native coronary artery without angina pectoris; I10 Essential (primary) hypertension; Z95.810 Presence of automatic (implantable) cardiac defibrillator; E11.9 Type 2 diabetes mellitus without complications; Z79.4 Long term (current) use of insulin; J45.998 Other asthma
CPT/HCPCS: 71046-TC-FY; 99281-25

== ENCOUNTER 2019-11-09 09:45 | Emergency (ER) | payer OTHER ==
--- NOTE | 2019-11-09 09:56 | PDOC ---
Rapid Medical Evaluation Chief Complaint: Injury Time Seen by Provider: 11/09/19 09:53 Medical Evaluation: Allergies Allergy/AdvReac Type Severity Reaction Status Date / Time No Known Allergies Allergy Verified 04/05/19 12:00 11/09/19 09:53 CC: fell in bathtub exam: no vertebral tenderness, tender over left post pelvis Plan: hip/pelvis xray
[2019-11-09 09:57] VITALS: BMI 32.8
[2019-11-09] MEDS ORDERED: ACETAMINOPHEN 325 MG TABLET (FP) PO ONE (11:20)
[2019-11-09] MEDS ORDERED: LIDOCAINE 5% TOPICAL PATCH TP ONE (11:21)
[2019-11-09] MEDS ORDERED: LIDOCAINE 5% TOPICAL PATCH ONE (11:29)
[2019-11-09] MEDS ORDERED: ACETAMINOPHEN 325 MG TABLET (FP) ONE (11:29)
--- NOTE | 2019-11-09 12:51 | PDOC ---
History of Present Illness - General Chief Complaint: Injury Stated Complaint: SLIP AND FALL Time Seen by Provider: 11/09/19 09:53 History Source: Patient Exam Limitations: No Limitations - History of Present Illness Initial Comments: 11/09/19 12:38 64 yo male presents to the ED from home after a slip and fall in the shower with left hip pain. Pt reports standing in shower, using soap and slipping. Pt hit the left side of his hip against the tub and had sudden onset pain. Pt able to ambulate after accident. Pt also admits to numbness radiating down the right leg. Denies weakness, changes in bowel or bladder habits (incontinence/retention) saddle anesthesia Past History - Medical History Allergies/Adverse Reactions: Allergies Allergy/AdvReac Type Severity Reaction Status Date / Time No Known Allergies Allergy Verified 04/05/19 12:00 Home Medications: Ambulatory Orders Insulin Aspart [Novolog Flexpen] 100 unit SQ ASDIR 07/10/15 Insulin Glargine,Hum.rec.anlog [Lantus Solostar PEN (NF)] 15 units SQ HS 06/07/18 Ketorolac Tromethamine [Toradol] 50 mg PO DAILY 11/09/19 Liraglutide [Victoza -] 1.8 mg SQ DAILY@0700 11/09/19 Lisinopril [Zestril] 2.5 mg PO DAILY 11/09/19 Asthma: Yes Cardiac Disorders: Yes COPD: No DVT: No Dementia: No Diabetes: Yes HTN: Yes - Surgical History Cardiac Surgery: Yes (AICD) - Immunization History Immunization Up to Date: Yes - Psycho-Social/Smoking History Smoking History: Never smoked Have you smoked in the past 12 months: No Information on smoking cessation initiated: No - Substance Abuse Hx (Audit-C & DAST Scrn) How often the patient has a drink containing alcohol: Never Score: In Men: 4 or > Positive; In Women: 3 or > Positive: 0 Screen Result (Pos requires Nsg. Audit-10AR): Negative In the last yr the pt used illegal drug/Rx for NonMed reason: No Score: Yes response is considered Positive: 0 Screen Result (Positive result requires Nsg. DAST-10): Negative *Physical Exam - Vital Signs Last Vital Signs Temp Pulse Resp BP Pulse Ox 97.8 F 84 17 166/88 98 11/09/19 09:53 11/09/19 09:53 11/09/19 09:53 11/09/19 10:54 11/09/19 09:53 ED Treatment Course - RADIOLOGY Radiology Studies Ordered: Category Date Time Status LUMBAR SPINE CT W/O CONTRAST [CT] Stat CT Scan 11/09/19 11:26 Taken - Medications Given in the ED: ED Medications Discontinued Medications Generic Name Dose Route Start Last Admin Trade Name Rodrigo PRN Reason Stop Dose Admin Acetaminophen 650 mg 11/09/19 11:20 11/09/19 11:32 Tylenol - PO 11/09/19 11:21 650 mg ONCE ONE Administration Lidocaine 1 patch 11/09/19 11:21 11/09/19 11:32 Lidoderm Patch - TP 11/09/19 11:22 1 patch ONCE ONE Administration Medical Decision Making - Medical Decision Making 11/09/19 12:51 discussed case with Ortho PA, Alvin Zambrano, states the avulsion fracture in the left hip is non emergent or surgical and can be followed up in clinic Monday. Pt should be weight bearing as tolerated and given crutches. CT Spine neg for acute Discharge - Discharge Information Problems reviewed: Yes Clinical Impression/Diagnosis: Greater trochanter fracture Condition: Stable Disposition: HOME - Admission No - Follow up/Referral Referrals: ePtros Vicente MD [Primary Care Provider] - Jamie Fry MD [Staff Physician] - Dexter Haley MD [Staff Physician] - Leobardo Isabel DO [Staff Physician] - - Patient Discharge Instructions Patient Printed Discharge Instructions: DI for Femoral Fracture Additional Instructions: Please see your Primary Doctor within the next 48 hours. See the Orthopedic Doctor, Dr. Fry/Tera on Monday in clinic. Use the crutches as described. Use motrin over the counter as needed for pain. - Post Discharge Activity
--- NOTE | 2019-11-09 13:19 | PDOC ---
Documentation entered by Iglesia Schaffer SCRIBE, acting as scribe for Paras Meadows MD. Paras Meadows MD: This documentation has been prepared by the asbrina, Iglesia Schaffer SCRIBE, under my direction and personally reviewed by me in its entirety. I confirm that the documentation accurately reflects all work, treatment, procedures, and medical decision making performed by me. Attending Attestation - Resident Resident Name: Ad Delaney - ED Attending Attestation I have performed the following: I have examined & evaluated the patient, The case was reviewed & discussed with the resident, I agree w/resident's findings & plan, Exceptions are as noted - HPI HPI: 11/09/19 13:19 64 M presenting with slip and fall. Pt was in the shower when he slipped on soap and fell against the tub with his L hip. Pt states he was unable to get up afterwards. Denies headstrike/LOC. Denies any new weakness/numbness in any extremity. However, complains of chronic numbness in R leg that seems slightly worse after the fall. Also complains of L hip pain. Denies urinary or fecal incontinence. Denies saddle anesthesia. - Physicial Exam PE: 11/09/19 12:55 See resident exam - Medical Decision Making 11/09/19 13:21 64 M with L hip pain and RLE numbness after mechanical fall. - XR/CT - Pain control 11/09/19 14:14 Pt reassessed - continues to have numbness in RLE that is slightly worse than his baseline Unable to obtain MRI due to pacemaker Will consult neurosurgery for recs 11/09/19 15:[address] Conteh, who recommends CT myelogram in lieu of MRI. This is currently unavailable at this hospital. Will initiate transfer. Discharge - Discharge Information Problems reviewed: Yes Clinical Impression/Diagnosis: Greater trochanter fracture, Fall, Thigh numbness Condition: Stable Disposition: TRANSFER ACUTE CARE/OTHER HOSP - Follow up/Referral Referrals: Petros Vicente MD [Primary Care Provider] - Jamie Fry MD [Staff Physician] - Leobardo Isabel DO [Staff Physician] - Dexter Haley MD [Staff Physician] - - Patient Discharge Instructions Patient Printed Discharge Instructions: DI for Femoral Fracture Additional Instructions: Please see your Primary Doctor within the next 48 hours. See the Orthopedic Doctor, Dr. Fry/Tera on Monday morning in clinic. Use the crutches as described. Use motrin over the counter as needed for pain. - Post Discharge Activity
[2019-11-09] MEDS ORDERED: DEXAMETHASONE SOD PHOSPHATE 10 MG/1 ML VIAL IVPUSH ONE (16:40)
[2019-11-09 16:53] VITALS: BP 145/67; PULSE 86; TEMP 98
[2019-11-09] MEDS ORDERED: LIDOCAINE PATCH REMOVAL MC SCH (22:00)
== END 2019-11-09 16:57 | disposition short-term general hospital (02) ==
LOC: JER 09:45
DX: S72.112A Displaced fracture of greater trochanter of left femur, initial encounter for closed fracture (principal); W18.2XXA Fall in (into) shower or empty bathtub, initial encounter
CPT/HCPCS: 72131-TC; 73523-TC-FY; 99284-25

== ENCOUNTER 2020-03-23 04:48 | Day surgery (SDC) | payer MEDICARE, OTHER ==
[2020-03-18 11:39] VITALS: BMI 33.0
[2020-03-23] MEDS ORDERED: LIDOCAINE HCL/PF 1% SDV 5ML VIAL ONE ×2 (07:48→09:02)
[2020-03-23] MEDS ORDERED: DEXAMETHASONE SOD PHOSPHATE/PF 10 MG/ML SDV ONE (09:02)
[2020-03-23] MEDS ORDERED: LIDOCAINE 1% P/F 10 MG/ML VIAL INF ONE (12:38)
[2020-03-23] MEDS ORDERED: DEXAMETHASONE SOD PHOSPHATE 20 MG/5 ML VIAL IM ONE ×2 (12:39)
[2020-03-23] MEDS ORDERED: IOHEXOL 180 MG/1 ML ML IJ ONE (12:40)
[2020-03-23] MEDS ORDERED: DEXAMETHASONE SOD PHOSPHATE 10 MG/1 ML VIAL ONE (12:47)
[2020-03-23 13:36] VITALS: BP 124/75; PULSE 60; TEMP 97.6
== END 2020-03-23 14:32 | disposition home or self-care (01) ==
LOC: JASU-SURG 04:48
PROVIDERS: ATTEND Pain Medicine Pain Medicine
PROC: 3E0R33Z Introduction of Anti-inflammatory into Spinal Canal, Percutaneous Approach (ICD-10-PCS; 2020-03-23)
PROC: 3E0R3BZ Introduction of Anesthetic Agent into Spinal Canal, Percutaneous Approach (ICD-10-PCS; principal; 2020-03-23 12:30)
DX: M54.16 Radiculopathy, lumbar region (principal); M54.5 Low back pain
CPT/HCPCS: 76000-TC-FY; 82962; J1100

== ENCOUNTER 2020-07-19 14:07 | Emergency (ER) | payer MEDICARE, OTHER ==
[2020-07-19 14:29] VITALS: TEMP 98.9; BMI 35.4
[2020-07-19 16:09] LABS: HEMATOCRIT 42.7 % (35.4-49); HEMOGLOBIN 14.7 GM/dL (11.7-16.9); MCH 34.3 pg (25.7-33.7); MCHC 34.4 g/dl (32.0-35.9); MEAN CELL VOLUME 99.9 fl (80-96); MEAN PLT VOLUME 8.9 fl (7.5-11.1); PLATELET COUNT 159 K/MM3 (134-434); RBC 4.27 M/mm3 (4.00-5.60); RDW 13.1 % (11.9-15.9); WHITE BLOOD COUNT 5.7 K/mm3 (4.0-10.0)
[2020-07-19 16:15] LABS: INR 0.94 (0.83-1.09); PROTHROMBIN TIME (PATIENT) 11.6 SEC (9.7-13.0)
[2020-07-19 16:18] LABS: ACTIVATED PTT 28.4 SECONDS (25.2-36.5)
[2020-07-19 16:38] LABS: CHLORIDE 106 mmol/L (98-107); SODIUM 138 mmol/L (136-145)
[2020-07-19 16:40] LABS: ALBUMIN 3.8 g/dl (3.4-5.0); BLOOD UREA NITROGEN 11.6 mg/dL (7-18); CALCIUM 8.6 mg/dL (8.5-10.1); CO2 26 mmol/L (21-32); GLUCOSE,RANDOM 264 mg/dL (74-106)
[2020-07-19 16:43] LABS: SGOT/AST 23 U/L (15-37); SGPT/ALT 49 U/L (13-61)
[2020-07-19 16:45] LABS: BILIRUBIN,TOTAL 0.5 mg/dL (0.2-1); TOT PROT 7.1 g/dl (6.4-8.2)
[2020-07-19 16:46] LABS: ALK PHOS 82 U/L (45-117)
[2020-07-19 16:50] LABS: ANION GAP 7 MMOL/L (8-16); POTASSIUM 4.3 mmol/L (3.5-5.1)
[2020-07-19] MEDS ORDERED: SODIUM CHLORIDE 0.9% 1000 ML INFUS.BAG IV ONE (17:16)
[2020-07-19] MEDS ORDERED: ACETAMINOPHEN 1000 MG/100 ML VIAL (NON FORMULARY) IVPB ONE (17:16)
[2020-07-19] MEDS ORDERED: ACETAMINOPHEN INJECTION 100 ML IVPB ONE (17:20)
[2020-07-19] MEDS ORDERED: LIDOCAINE 5% TOPICAL PATCH TP ONE (17:27)
[2020-07-19] MEDS ORDERED: LIDOCAINE 5% TOPICAL PATCH ONE (17:28)
[2020-07-19 18:23] VITALS: BP 121/69; PULSE 56
[2020-07-19] MEDS ORDERED: LIDOCAINE PATCH REMOVAL MC SCH (22:00)
== END 2020-07-19 18:40 | disposition home or self-care (01) ==
LOC: JER 14:07
PROC: 3E0333Z Introduction of Anti-inflammatory into Peripheral Vein, Percutaneous Approach (ICD-10-PCS; principal; 2020-07-19)
DX: U07.1 COVID-19 (principal); R06.02 Shortness of breath
CPT/HCPCS: 36415; 71045-TC-FY; 80053; 82550; 84484; 85027; 85610; 85730; 93005; 93010; 99285-25; C9803; J0131; U0003

== ENCOUNTER 2020-07-26 16:49 | Inpatient (IN) | payer MEDICARE, OTHER ==
[2020-07-26] MEDS ORDERED: DEXAMETHASONE SOD PHOSPHATE 10 MG/1 ML VIAL IVPUSH ONE (17:46)
[2020-07-26] MEDS ORDERED: SODIUM CHLORIDE 0.9% 500 ML INFUS.BAG IV ONE (17:48)
[2020-07-26] MEDS ORDERED: ACETAMINOPHEN 1000 MG/100 ML VIAL (NON FORMULARY) IVPB ONE (18:42)
[2020-07-26 18:47] LABS: BASO % 0.2 % (0-2.0); HEMATOCRIT 45.1 % (35.4-49); HEMOGLOBIN 15.2 GM/dL (11.7-16.9); LYMPH % 20.9 % (8-40); MCH 33.6 pg (25.7-33.7); MCHC 33.7 g/dl (32.0-35.9); MEAN CELL VOLUME 99.9 fl (80-96); MEAN PLT VOLUME 9.4 fl (7.5-11.1); MONO % 14.7 % (3.8-10.2); NEUT % 64.2 % (42.8-82.8); PLATELET COUNT 172 K/MM3 (134-434); RBC 4.52 M/mm3 (4.00-5.60); RDW 12.6 % (11.9-15.9)
[2020-07-26] MEDS ORDERED: DEXAMETHASONE SOD PHOSPHATE 10 MG/1 ML VIAL ONE (18:50)
[2020-07-26] MEDS ORDERED: ACETAMINOPHEN INJECTION 100 ML IVPB ONE (18:50)
[2020-07-26] MEDS ORDERED: ALBUTEROL SO4 HFA INHALER IH PRN (18:53)
[2020-07-26] MEDS ORDERED: ALBUTEROL SO4 0.083% IH SOL 2.5 MG/3 ML VIAL.NEB. NEB ONE ×2 (18:55→19:53)
[2020-07-26 19:00] LABS: INR 1.11 (0.83-1.09); PROTHROMBIN TIME (PATIENT) 13.4 SEC (9.7-13.0)
[2020-07-26 19:03] LABS: ACTIVATED PTT 26.1 SECONDS (25.2-36.5)
[2020-07-26 19:05] LABS: CHLORIDE 98 mmol/L (98-107); POTASSIUM 4.5 mmol/L (3.5-5.1); SODIUM 133 mmol/L (136-145)
[2020-07-26 19:07] LABS: ALBUMIN 3.7 g/dl (3.4-5.0); CALCIUM 8.3 mg/dL (8.5-10.1)
[2020-07-26 19:08] LABS: ANION GAP 8 MMOL/L (8-16); BLOOD UREA NITROGEN 11.4 mg/dL (7-18); CO2 27 mmol/L (21-32); GLUCOSE,RANDOM 326 mg/dL (74-106)
[2020-07-26 19:10] LABS: SGPT/ALT 57 U/L (13-61)
[2020-07-26 19:11] LABS: CREATININE 1.1 mg/dL (0.55-1.3); SGOT/AST 50 U/L (15-37)
[2020-07-26 19:12] LABS: BILIRUBIN,TOTAL 0.8 mg/dL (0.2-1); TOT PROT 7.4 g/dl (6.4-8.2)
[2020-07-26 19:14] LABS: ALK PHOS 98 U/L (45-117)
[2020-07-26 19:39] LABS: ERYTHROCYTE SEDIMENTATION RATE 39 mm/hr (0-20)
[2020-07-26 19:53] LABS: LDH 394 U/L (87-246)
[2020-07-26] MEDS ORDERED: BENZOCAINE/MENTH/CETYLPYRD CL 1 EACH LOZENGE MM PRN (23:52)
[2020-07-26] MEDS ORDERED: guaiFENesin/D-M SUGAR-FREE/ACLHOL-FREE 118 ML BOTTLE PO PRN (23:52)
[2020-07-27] MEDS ORDERED: INSULIN (NOVOLOG) ASPART 100 UNITS/ML 10ML VIAL SQ ONE (00:33)
[2020-07-27] MEDS: GABAPENTIN 300 MG CAPSULE PO SCH ×3 (01:47→22:30)
[2020-07-27 07:58] LABS: BASO % 0.2 % (0-2.0); HEMATOCRIT 41.9 % (35.4-49); HEMOGLOBIN 14.7 GM/dL (11.7-16.9); LYMPH % 18.4 % (8-40); MCH 34.4 pg (25.7-33.7); MCHC 35.1 g/dl (32.0-35.9); MEAN CELL VOLUME 98.1 fl (80-96); MEAN PLT VOLUME 8.8 fl (7.5-11.1); MONO % 12.7 % (3.8-10.2); NEUT % 68.7 % (42.8-82.8); PLATELET COUNT 176 K/MM3 (134-434); RBC 4.27 M/mm3 (4.00-5.60); RDW 12.4 % (11.9-15.9); WHITE BLOOD COUNT 3.6 K/mm3 (4.0-10.0)
[2020-07-27 08:15] LABS: POTASSIUM 4.4 mmol/L (3.5-5.1)
[2020-07-27 08:20] LABS: CALCIUM 8.5 mg/dL (8.5-10.1)
[2020-07-27 08:21] LABS: ALBUMIN 3.4 g/dl (3.4-5.0); BLOOD UREA NITROGEN 16.1 mg/dL (7-18); MAGNESIUM 2.6 mg/dL (1.8-2.4)
[2020-07-27 08:23] LABS: BILIRUBIN,TOTAL 0.7 mg/dL (0.2-1); TOT PROT 7.1 g/dl (6.4-8.2)
[2020-07-27 08:24] LABS: PHOSPHOROUS 3.8 mg/dL (2.5-4.9)
[2020-07-27] MEDS: INSULIN SLIDING SCALE (NOVOLOG) 1 VIAL SQ SCH ×4 (08:30→22:09)
[2020-07-27] MEDS ORDERED: PATIENT'S OWN MEDICATION (NON-FORMULARY) (Lisinopril [Zestril] 2.5 MG Tablet) PO SCH (10:00)
[2020-07-27] MEDS ORDERED: DEXAMETHASONE SOD PHOSPHATE 4 MG/1 ML VIAL IVPUSH SCH (10:00)
[2020-07-27] MEDS ORDERED: ASCORBIC ACID 500 MG TABLET (FP) ONE (11:21)
[2020-07-27] MEDS ORDERED: ENOXAPARIN NA (PORCINE) 40 MG/0.4 ML DISP.SYRIN SQ ONE (11:22)
[2020-07-27] MEDS ORDERED: DEXAMETHASONE SOD PHOSPHATE 10 MG/1 ML VIAL ONE (11:22)
[2020-07-27] MEDS: ASCORBIC ACID 500 MG TABLET (FP) PO SCH (12:20)
[2020-07-27] MEDS: CHOLECALCIFEROL (VIT D3) 5000 UNITS (125 MCG) CAP PO SCH (12:20)
[2020-07-27] MEDS: LISINOPRIL 10 MG TABLET PO SCH (12:20)
[2020-07-27] MEDS: ENOXAPARIN NA (PORCINE) 40 MG/0.4 ML DISP.SYRIN SQ SCH (12:34)
[2020-07-27] MEDS ORDERED: BAMLANIVIMAB 700 MG, ETESEVIMAB 1,400 MG in SODIUM CHLORIDE 250 ML IVPB ONE (14:26)
[2020-07-27] MEDS ORDERED: CASIRIVIMAB (REGN10933) 1,200 MG, IMDEVIMAB (REGN10987) 1,200 MG in SODIUM CHLORIDE 250 ML IVPB ONE (17:00)
[2020-07-27] MEDS ORDERED: ALBUTEROL SO4 HFA INHALER IH ONE (17:47)
[2020-07-27] MEDS ORDERED: GABAPENTIN 100 MG CAPSULE ONE (22:27)
[2020-07-28 04:08] VITALS: BMI 32.8
[2020-07-28 04:22] LABS: PH,URINE 5.5 (5.0-8.0); URINE APPEARANCE CLEAR; URINE BILIRUBIN NEGATIVE (NEGATIVE); URINE COLOR YELLOW; URINE GLUCOSE (UA) 3+ (NEGATIVE); URINE KETONE TRACE (NEGATIVE); URINE LEUK ESTERASE NEGATIVE (NEGATIVE); URINE NITRITE NEGATIVE (NEGATIVE); URINE PROTEIN NEGATIVE (NEGATIVE); URINE UROBILINOGEN 0.2 mg/dL (0.2-1.0)
[2020-07-28] MEDS: INSULIN SLIDING SCALE (NOVOLOG) 1 VIAL SQ SCH ×2 (06:50→11:22)
[2020-07-28 08:46] LABS: BASO % 0.1 % (0-2.0); MEAN CELL VOLUME 98.5 fl (80-96); RBC 4.02 M/mm3 (4.00-5.60); WHITE BLOOD COUNT 9.4 K/mm3 (4.0-10.0)
[2020-07-28 08:49] LABS: BLOOD UREA NITROGEN 19.4 mg/dL (7-18); MAGNESIUM 2.7 mg/dL (1.8-2.4)
[2020-07-28 08:51] LABS: CALCIUM 8.5 mg/dL (8.5-10.1); HEMATOCRIT 39.7 % (35.4-49); HEMOGLOBIN 13.8 GM/dL (11.7-16.9); LYMPH % 10.8 % (8-40); MCH 34.3 pg (25.7-33.7); MCHC 34.8 g/dl (32.0-35.9); MEAN PLT VOLUME 9.1 fl (7.5-11.1); MONO % 10.3 % (3.8-10.2); NEUT % 78.8 % (42.8-82.8); PLATELET COUNT 207 K/MM3 (134-434); RDW 12.5 % (11.9-15.9)
[2020-07-28 08:52] LABS: CREATININE 0.9 mg/dL (0.55-1.3)
[2020-07-28 08:53] LABS: PHOSPHOROUS 3.3 mg/dL (2.5-4.9)
[2020-07-28] MEDS ORDERED: PT OWN MED DRAWER 7, Y5N ONE ×2 (09:38→14:32)
[2020-07-28] MEDS: ASCORBIC ACID 500 MG TABLET (FP) PO SCH (09:54)
[2020-07-28] MEDS: GABAPENTIN 300 MG CAPSULE PO SCH (09:54)
[2020-07-28] MEDS: ENOXAPARIN NA (PORCINE) 40 MG/0.4 ML DISP.SYRIN SQ SCH (09:54)
[2020-07-28] MEDS: LISINOPRIL 10 MG TABLET PO SCH (09:54)
[2020-07-28] MEDS: CHOLECALCIFEROL (VIT D3) 5000 UNITS (125 MCG) CAP PO SCH (09:55)
[2020-07-28] MEDS ORDERED: guaiFENesin/D-M SUGAR-FREE/ACLHOL-FREE 118 ML BOTTLE PO PRN (10:14)
[2020-07-28 15:47] VITALS: BP 126/76; PULSE 73; TEMP 98.1
== END 2020-07-28 16:17 | disposition home or self-care (01) | DRG 177 ==
LOC: JER 16:49 → JERBED 22:31 → J8W 07-28 03:21
PROVIDERS: ADMIT Internal Medicine; ATTEND Internal Medicine
PROC: XW033F6 Introduction of Bamlanivimab Monoclonal Antibody into Peripheral Vein, Percutaneous Approach, New Technology Group 6 (ICD-10-PCS; principal; 2020-07-27)
DX: U07.1 COVID-19 (principal); J12.82 Pneumonia due to coronavirus disease 2019; S32.019A Unspecified fracture of first lumbar vertebra, initial encounter for closed fracture; I25.2 Old myocardial infarction; M54.5 Low back pain; I10 Essential (primary) hypertension; E11.42 Type 2 diabetes mellitus with diabetic polyneuropathy; E66.9 Obesity, unspecified; E11.65 Type 2 diabetes mellitus with hyperglycemia; Z68.32 Body mass index [BMI] 32.0-32.9, adult; Z96.651 Presence of right artificial knee joint; W18.39XA Other fall on same level, initial encounter; Y92.89 Other specified places as the place of occurrence of the external cause; Z95.0 Presence of cardiac pacemaker
CPT/HCPCS: 36415; 71045-TC-FY; 71275-TC; 80048; 80053; 81003; 82728; 82962; 83615; 83735; 84100; 84484; 85025; 85379; 85610; 85651; 85730; 86140; 86769; 87086; 93005; 93010; 99285-25; C9803; J0131; J1100; M0239; Q0239; Q0245; U0003; U0005

== ENCOUNTER 2021-02-23 04:49 | Day surgery (SDC) | payer MEDICARE, OTHER ==
[2021-02-22 09:49] VITALS: BMI 34.8
[2021-02-23] MEDS ORDERED: DEXAMETHASONE SOD PHOSPHATE 10 MG/1 ML VIAL ONE (08:54)
[2021-02-23] MEDS ORDERED: LIDOCAINE HCL 1% PRESERVATIVE FREE - 30ML VIAL EP ONE (09:00)
[2021-02-23] MEDS ORDERED: DEXAMETHASONE SOD PHOSPHATE 10 MG/1 ML VIAL IM ONE (09:01)
[2021-02-23] MEDS ORDERED: IOHEXOL 180 MG/1 ML ML IJ ONE (09:01)
[2021-02-23 09:44] VITALS: TEMP 97.6
[2021-02-23 10:20] VITALS: BP 139/76; PULSE 77
== END 2021-02-23 10:10 | disposition home or self-care (01) ==
LOC: JASU-SURG 04:49
PROVIDERS: ATTEND Pain Medicine Pain Medicine
PROC: 3E0R33Z Introduction of Anti-inflammatory into Spinal Canal, Percutaneous Approach (ICD-10-PCS; 2021-02-23)
PROC: 3E0R3BZ Introduction of Anesthetic Agent into Spinal Canal, Percutaneous Approach (ICD-10-PCS; principal; 2021-02-23 09:30)
DX: M54.16 Radiculopathy, lumbar region (principal); E11.9 Type 2 diabetes mellitus without complications; Z79.4 Long term (current) use of insulin
CPT/HCPCS: 76000-TC-FY; J1100

== ENCOUNTER 2021-02-24 07:34 | Emergency (ER) | payer MEDICARE, OTHER ==
[2021-02-24 08:15] VITALS: TEMP 97.9; BMI 34.8
[2021-02-24] MEDS ORDERED: SODIUM CHLORIDE 1,000 ML IV STA (09:15)
[2021-02-24 09:56] LABS: BASO % 0.2 % (0-2.0); HEMATOCRIT 41.1 % (35.4-49); HEMOGLOBIN 13.9 GM/dL (11.7-16.9); LYMPH % 10.7 % (8-40); MCHC 33.9 g/dl (32.0-35.9); MEAN CELL VOLUME 97.4 fl (80-96); MEAN PLT VOLUME 8.5 fl (7.5-11.1); MONO % 9.7 % (3.8-10.2); NEUT % 79.4 % (42.8-82.8); PLATELET COUNT 185 10^3/uL (134-434); RBC 4.22 M/mm3 (4.00-5.60); RDW 13.9 % (11.9-15.9)
[2021-02-24 10:12] LABS: CHLORIDE 108 mmol/L (98-107); SODIUM 140 mmol/L (136-145)
[2021-02-24 10:14] LABS: CALCIUM 9.1 mg/dL (8.5-10.1)
[2021-02-24 10:15] LABS: ALBUMIN 3.9 g/dl (3.4-5.0); ANION GAP 6 MMOL/L (8-16); BLOOD UREA NITROGEN 14.8 mg/dL (7-18); CO2 26 mmol/L (21-32); GLUCOSE,RANDOM 377 mg/dL (74-106)
[2021-02-24 10:18] LABS: SGOT/AST 15 U/L (15-37); SGPT/ALT 30 U/L (13-61)
[2021-02-24 10:20] LABS: BILIRUBIN,TOTAL 0.6 mg/dL (0.2-1); TOT PROT 7.6 g/dl (6.4-8.2)
[2021-02-24 10:21] LABS: ALK PHOS 64 U/L (45-117)
[2021-02-24 10:28] LABS: PH,URINE 5.5 (5.0-8.0); URINE APPEARANCE CLEAR; URINE BILIRUBIN NEGATIVE (NEGATIVE); URINE COLOR YELLOW; URINE GLUCOSE (UA) 3+ (NEGATIVE); URINE KETONE NEGATIVE (NEGATIVE); URINE LEUK ESTERASE NEGATIVE (NEGATIVE); URINE NITRITE NEGATIVE (NEGATIVE); URINE PROTEIN NEGATIVE (NEGATIVE); URINE UROBILINOGEN 0.2 mg/dL (0.2-1.0)
[2021-02-24] MEDS ORDERED: Insulin (LOG) Aspart 100 UNITS/ML VIAL SQ ONE (11:48)
[2021-02-24 13:56] VITALS: BP 140/72; PULSE 78
== END 2021-02-24 14:37 | disposition home or self-care (01) ==
LOC: JER 07:34
DX: E11.65 Type 2 diabetes mellitus with hyperglycemia (principal)
CPT/HCPCS: 36415; 71046-TC-FY; 80053; 81003; 82010; 82962; 84484; 85025; 87086; 93005; 93010; 99284-25

== ENCOUNTER 2021-03-01 18:37 | Emergency (ER) | payer MEDICARE, OTHER ==
[2021-03-01 18:55] VITALS: BP 160/87; PULSE 60; TEMP 97.8; BMI 34.8
[2021-03-01] MEDS ORDERED: DIPHTH,PERTUSS(ACELL),TET VAC 0.5 ML VIAL IM ONE (20:29)
[2021-03-01] MEDS ORDERED: DIPHTH,PERTUSS(ACELL),TET 0.5 ML DISP.SYRIN IM ONE (20:48)
== END 2021-03-01 21:11 | disposition home or self-care (01) ==
LOC: JERFT 18:37
PROC: 0HQFXZZ Repair Right Hand Skin, External Approach (ICD-10-PCS; principal; 2021-03-01)
PROC: 0HQGXZZ Repair Left Hand Skin, External Approach (ICD-10-PCS; 2021-03-01)
PROC: 3E0234Z Introduction of Serum, Toxoid and Vaccine into Muscle, Percutaneous Approach (ICD-10-PCS; 2021-03-01)
DX: S61.211A Laceration without foreign body of left index finger without damage to nail, initial encounter (principal); S61.210A Laceration without foreign body of right index finger without damage to nail, initial encounter; W26.0XXA Contact with knife, initial encounter; Y93.G1 Activity, food preparation and clean up
CPT/HCPCS: 12002-25; 90471; 99284-25

== ENCOUNTER 2021-03-09 13:25 | Emergency (ER) | payer MEDICARE, OTHER ==
[2021-03-09 14:30] VITALS: BP 131/69; PULSE 64; TEMP 98.3; BMI 39.0
== END 2021-03-09 16:07 | disposition home or self-care (01) ==
LOC: JERFT 13:25
DX: Z48.02 Encounter for removal of sutures (principal)
CPT/HCPCS: 99281-25

== ENCOUNTER 2021-07-10 19:03 | Emergency (ER) | payer MEDICARE, OTHER ==
[2021-07-10 19:18] VITALS: TEMP 98.1; BMI 33.5
[2021-07-10] MEDS ORDERED: ACETAMINOPHEN 325 MG TABLET (FP) PO ONE (19:59)
[2021-07-10] MEDS ORDERED: METHOCARBAMOL 500 MG TABLET PO ONE (20:01)
[2021-07-10] MEDS ORDERED: LIDOCAINE 5% TOPICAL PATCH TP ONE (20:02)
[2021-07-10] MEDS ORDERED: KETOROLAC TROMETHAMINE 60 MG/2 ML VIAL IM ONE (20:02)
[2021-07-10] MEDS ORDERED: METHOCARBAMOL 500 MG TABLET ONE (20:34)
[2021-07-10] MEDS ORDERED: ACETAMINOPHEN 325 MG TABLET (FP) ONE (20:35)
[2021-07-10] MEDS ORDERED: LIDOCAINE 5% TOPICAL PATCH ONE (20:35)
[2021-07-10] MEDS ORDERED: KETOROLAC TROMETHAMINE 60 MG/2 ML VIAL ONE (20:35)
[2021-07-10 22:19] VITALS: BP 142/77; PULSE 64
[2021-07-11] MEDS ORDERED: LIDOCAINE PATCH REMOVAL MC SCH (08:00)
== END 2021-07-10 22:30 | disposition home or self-care (01) ==
LOC: JER 19:03
PROC: 3E023GC Introduction of Other Therapeutic Substance into Muscle, Percutaneous Approach (ICD-10-PCS; principal; 2021-07-10)
DX: M54.16 Radiculopathy, lumbar region (principal); M54.31 Sciatica, right side
CPT/HCPCS: 96372; 99284-25

== ENCOUNTER → 2022-01-28 | Day surgery (SDC) | payer MEDICARE, OTHER ==
[2022-01-12 13:17] VITALS: BMI 34.8
[~2022-01-28] MED LIST: BUPIVACAINE HCL/PF 0.5% (5MG/ML) 10 ML VIAL ONE; BUPIVACAINE HCL/PF 0.75% 10 ML VIAL ONE; BUPIVACAINE HCL/PF 0.75% 10 ML VIAL PNB ONE; DEXAMETHASONE SOD PHOSPHATE 10 MG/1 ML VIAL ONE; LIDOCAINE HCL 1% PRESERVATIVE FREE - 30ML VIAL IJ ONE; LIDOCAINE HCL/PF 1% SDV 5ML VIAL ONE
== END | disposition home or self-care (01) ==
LOC: JASU-SURG 04:14
PROVIDERS: ATTEND Pain Medicine Pain Medicine
DX: Z53.8 Procedure and treatment not carried out for other reasons (principal)
CPT/HCPCS: J1100

== ENCOUNTER 2022-09-02 16:45 | Emergency (ER) | payer MEDICARE, OTHER ==
[2022-09-02 16:52] VITALS: BP 144/78; PULSE 92; RESP 18; TEMP 97.5; BMI 35.1
[2022-09-02] MEDS ORDERED: ACETAMINOPHEN 1000 MG/100 ML BAG IVPB ONE (17:31)
[2022-09-02] MEDS ORDERED: methylPREDNISolone NA SUCC 125 MG/2 ML VIAL IVPUSH ONE (17:31)
[2022-09-02] MEDS: ALBUTEROL SO4 2.5/IPRATROPIUM 0.5 INH SOL 3 ML VIAL.NEB. NEB SCH ×4 (17:45→18:51)
[2022-09-02] MEDS ORDERED: ALBUTEROL SO4 2.5/IPRATROPIUM 0.5 INH SOL 3 ML VIAL.NEB. NEB ONE (18:11)
[2022-09-02] MEDS ORDERED: methylPREDNISolone NA SUCC 125 MG/2 ML VIAL ONE (18:12)
[2022-09-02] MEDS ORDERED: ACETAMINOPHEN INJECTION 100 ML IVPB ONE (18:12)
[2022-09-02 18:16] LABS: BASO % 0.7 % (0-2.0); EOS % 0.2 % (0-4.5); HEMATOCRIT 40.2 % (35.4-49); MCH 33.1 pg (25.7-33.7); MCHC 34.8 g/dl (32.0-35.9); MEAN CELL VOLUME 95.2 fl (80-96); MONO % 12.7 % (3.8-10.2); NEUT % 72.4 % (42.8-82.8); PLATELET COUNT 196 10^3/uL (134-434); RBC 4.22 M/mm3 (4.00-5.60); RDW 13.1 % (11.9-15.9); WHITE BLOOD COUNT 12.3 K/mm3 (4.0-10.0)
[2022-09-02 18:53] LABS: POTASSIUM 4.2 mmol/L (3.5-5.1)
[2022-09-02 18:55] LABS: CALCIUM 8.7 mg/dL (8.5-10.1)
[2022-09-02 18:56] LABS: ALBUMIN 3.8 g/dl (3.4-5.0); BLOOD UREA NITROGEN 10.5 mg/dL (7-18)
[2022-09-02 18:59] LABS: CREATININE 0.9 mg/dL (0.55-1.3)
[2022-09-02 19:00] LABS: BILIRUBIN,TOTAL 1.4 mg/dL (0.2-1); TOT PROT 7.1 g/dl (6.4-8.2)
[2022-09-02] MEDS ORDERED: DOXYCYCLINE HYCLATE 100 MG CAPSULE PO ONE ×2 (20:39→20:48)
== END 2022-09-02 21:16 | disposition home or self-care (01) ==
LOC: JER 16:45
PROC: 3E033NZ Introduction of Analgesics, Hypnotics, Sedatives into Peripheral Vein, Percutaneous Approach (ICD-10-PCS; principal; 2022-09-02)
PROC: 3E033GC Introduction of Other Therapeutic Substance into Peripheral Vein, Percutaneous Approach (ICD-10-PCS; 2022-09-02)
PROC: 3E0F7GC Introduction of Other Therapeutic Substance into Respiratory Tract, Via Natural or Artificial Opening (ICD-10-PCS; 2022-09-02)
DX: J45.909 Unspecified asthma, uncomplicated (principal); R07.9 Chest pain, unspecified; R05.3 Chronic cough; R68.83 Chills (without fever); R42 Dizziness and giddiness; Z20.822 Contact with and (suspected) exposure to COVID-19
CPT/HCPCS: 0241U-QW; 36415; 71046-TC-FY; 80053; 84484; 85025; 87040; 93005; 93010; 94640; 96374; 96375; 99285-25

== ENCOUNTER 2022-12-25 12:05 | Emergency (ER) | payer OTHER ==
[2022-12-25 12:24] VITALS: BP 156/82; PULSE 69; RESP 18; TEMP 98; BMI 34.8
[2022-12-25] MEDS ORDERED: ACETAMINOPHEN 500 MG TABLET (FP) PO ONE (12:53)
[2022-12-25] MEDS ORDERED: traMADol HCL 50 MG TABLET PO ONE (12:58)
[2022-12-25] MEDS ORDERED: ACETAMINOPHEN 325 MG TABLET (FP) ONE (13:00)
[2022-12-25] MEDS ORDERED: traMADol HCL 50 MG TABLET ONE (13:00)
[2022-12-25] MEDS ORDERED: LIDOCAINE 5% TOPICAL PATCH TP ONE ×2 (14:09→14:24)
[2022-12-25] MEDS ORDERED: LIDOCAINE 5% TOPICAL PATCH ONE ×2 (14:22→14:30)
[2022-12-25] MEDS ORDERED: KETOROLAC TROMETHAMINE 30 MG/1 ML VIAL IM ONE (14:25)
[2022-12-25] MEDS ORDERED: KETOROLAC TROMETHAMINE 30 MG/1 ML VIAL ONE (14:31)
[2022-12-25] MEDS ORDERED: LIDOCAINE PATCH REMOVAL MC ONE ×2 (22:00)
== END 2022-12-25 16:13 | disposition home or self-care (01) ==
LOC: JER 12:05
PROC: 3E0233Z Introduction of Anti-inflammatory into Muscle, Percutaneous Approach (ICD-10-PCS; principal; 2022-12-25)
DX: M54.50 Low back pain, unspecified (principal); W01.0XXA Fall on same level from slipping, tripping and stumbling without subsequent striking against object, initial encounter
CPT/HCPCS: 72125-TC; 72128-TC; 72131-TC; 96372; 99284-25

== ENCOUNTER 2022-12-26 15:44 | Observation (INO) | payer MEDICARE, OTHER ==
[2022-12-26 15:55] VITALS: BMI 33.2
[2022-12-26] MEDS ORDERED: ACETAMINOPHEN 1000 MG/100 ML BAG IVPB ONE (16:21)
[2022-12-26] MEDS ORDERED: DEXAMETHASONE SOD PHOSPHATE 10 MG/1 ML VIAL IVPB ONE (16:21)
[2022-12-26] MEDS ORDERED: DEXAMETHASONE SOD PHOSPHATE 10 MG/1 ML VIAL ONE (16:39)
[2022-12-26] MEDS ORDERED: ACETAMINOPHEN INJECTION 100 ML IVPB ONE (16:40)
[2022-12-26 17:27] LABS: BASO % 0.5 % (0-2.0); EOS % 0.8 % (0-4.5); HEMOGLOBIN 13.9 GM/dL (11.7-16.9); LYMPH % 28.8 % (8-40); MCH 32.5 pg (25.7-33.7); MEAN CELL VOLUME 95.4 fl (80-96); MONO % 11.4 % (3.8-10.2); NEUT % 58.5 % (42.8-82.8); RDW 13.7 % (11.9-15.9)
[2022-12-26 17:37] LABS: INR 1.03 (0.83-1.09); PROTHROMBIN TIME (PATIENT) 11.9 SEC (9.7-13.0)
[2022-12-26 17:40] LABS: ACTIVATED PTT 27.5 SECONDS (25.2-36.5)
[2022-12-26 17:45] LABS: POTASSIUM 4.3 mmol/L (3.5-5.1)
[2022-12-26] MEDS ORDERED: LACTATED RINGERS SOLUTION 1000 ML INFUS.BAG IV ONE ×2 (17:48→22:08)
[2022-12-26 17:49] LABS: MEAN PLT VOLUME 8.1 fl (7.5-11.1); PLATELET COUNT 171 10^3/uL (134-434)
[2022-12-26] MEDS ORDERED: KETOROLAC TROMETHAMINE 15 MG/ML VIAL IVPUSH ONE (17:49)
[2022-12-26 17:50] LABS: ALBUMIN 3.5 g/dl (3.4-5.0); BLOOD UREA NITROGEN 14.6 mg/dL (7-18); CALCIUM 8.4 mg/dL (8.5-10.1)
[2022-12-26 17:53] LABS: CREATININE 0.9 mg/dL (0.55-1.3)
[2022-12-26] MEDS ORDERED: KETOROLAC TROMETHAMINE 15 MG/ML VIAL ONE (17:54)
[2022-12-26 17:55] LABS: BILIRUBIN,TOTAL 0.7 mg/dL (0.2-1); TOT PROT 6.6 g/dl (6.4-8.2)
[2022-12-26] MEDS ORDERED: LIDOCAINE 5% TOPICAL PATCH TP ONE (19:42)
[2022-12-26] MEDS ORDERED: LIDOCAINE 5% TOPICAL PATCH ONE (19:43)
[2022-12-26] MEDS ORDERED: morphine CARPU-JECT 4 MG/1 ML DISP.SYRIN IVPUSH ONE (20:36)
[2022-12-26] MEDS ORDERED: morphine SULFATE 4 MG/ML VIAL ONE (20:51)
[2022-12-26] MEDS ORDERED: LIDOCAINE PATCH REMOVAL MC SCH (22:00)
[2022-12-27 00:08] VITALS: RESP 18
[2022-12-27] MEDS ORDERED: ACETAMINOPHEN 325 MG TABLET (FP) PO PRN (00:28)
[2022-12-27] MEDS ORDERED: morphine SULFATE 4 MG/ML VIAL IVPUSH PRN ×2 (00:28→07:53)
[2022-12-27] MEDS ORDERED: ENOXAPARIN NA (PORCINE) 30 MG/0.3 ML DISP.SYRIN SQ SCH (00:30)
[2022-12-27] MEDS ORDERED: LACTATED RINGERS SOLUTION 1,000 ML/1,000 ML INFUS.BAG IV SCH (00:45)
[2022-12-27] MEDS: KETOROLAC TROMETHAMINE 15 MG/ML VIAL IVPUSH PRN ×2 (02:47→13:26)
[2022-12-27] MEDS ORDERED: DEXAMETHASONE SOD PHOSPHATE 10 MG/1 ML VIAL IVPUSH SCH (03:00)
[2022-12-27] MEDS ORDERED: LIDOCAINE PATCH REMOVAL MC ONE (07:00)
[2022-12-27] MEDS ORDERED: LIRAGLUTIDE 0.6 MG/0.1 ML PEN.INJCTR SQ SCH (07:00)
[2022-12-27] MEDS ORDERED: ERGOCALCIFEROL (VIT D2) 50,000 UNIT (1.25 MG) CAPSULE PO SCH (10:00)
[2022-12-27] MEDS ORDERED: LIDOCAINE 5% TOPICAL PATCH TP SCH (10:00)
[2022-12-27] MEDS ORDERED: POLYETHYLENE GLYCOL (HEALTHYLAX) 3350 17 GM PACKET PO SCH (10:00)
[2022-12-27 10:52] LABS: PH,URINE 5.5 (5.0-8.0); URINE APPEARANCE CLEAR; URINE BILIRUBIN NEGATIVE (NEGATIVE); URINE COLOR YELLOW; URINE GLUCOSE (UA) 3+ (NEGATIVE); URINE KETONE TRACE (NEGATIVE); URINE LEUK ESTERASE NEGATIVE (NEGATIVE); URINE NITRITE NEGATIVE (NEGATIVE); URINE PROTEIN NEGATIVE (NEGATIVE); URINE UROBILINOGEN 0.2 mg/dL (0.2-1.0)
[2022-12-27 15:25] VITALS: BP 131/74; PULSE 84; TEMP 97.7
[2022-12-27] MEDS ORDERED: INSULIN (LEVEMIR) 100 UNITS/ML UNITS SQ SCH (22:00)
[2022-12-27] MEDS ORDERED: LIDOCAINE PATCH REMOVAL MC SCH (22:00)
== END 2022-12-27 16:50 | disposition home or self-care (01) ==
LOC: JER 15:44 → INTOOBSV 21:41 → JERBED 21:41 → UNDOADMOB 21:41 → J5S 23:29 → JERBED 23:29 → J5S 12-27 09:29
PROVIDERS: ADMIT Internal Medicine
PROC: 3E033GC Introduction of Other Therapeutic Substance into Peripheral Vein, Percutaneous Approach (ICD-10-PCS; principal; 2022-12-27)
PROC: 3E0333Z Introduction of Anti-inflammatory into Peripheral Vein, Percutaneous Approach (ICD-10-PCS; 2022-12-27)
PROC: 3E0337Z Introduction of Electrolytic and Water Balance Substance into Peripheral Vein, Percutaneous Approach (ICD-10-PCS; 2022-12-27)
PROC: 3E023GC Introduction of Other Therapeutic Substance into Muscle, Percutaneous Approach (ICD-10-PCS; 2022-12-27)
PROC: 3E033NZ Introduction of Analgesics, Hypnotics, Sedatives into Peripheral Vein, Percutaneous Approach (ICD-10-PCS; 2022-12-27)
DX: M53.3 Sacrococcygeal disorders, not elsewhere classified (principal); W06.XXXA Fall from bed, initial encounter; Y93.89 Activity, other specified; Y92.003 Bedroom of unspecified non-institutional (private) residence as the place of occurrence of the external cause; E55.9 Vitamin D deficiency, unspecified; E11.40 Type 2 diabetes mellitus with diabetic neuropathy, unspecified; I87.2 Venous insufficiency (chronic) (peripheral); G89.29 Other chronic pain; Z95.0 Presence of cardiac pacemaker; M19.90 Unspecified osteoarthritis, unspecified site; Z96.652 Presence of left artificial knee joint; G56.00 Carpal tunnel syndrome, unspecified upper limb; Z79.891 Long term (current) use of opiate analgesic
CPT/HCPCS: 36415; 72170-TC-FY; 72192-TC; 72220-TC-FY; 80053; 81003; 85025; 85610; 85730; 86850; 86900; 86901; 93005; 93010; 96361; 96372; 96374; 96375; 96376; 97116-GP; 97162-GP; 99285-25; G0378; J1100

== ENCOUNTER 2023-12-21 19:36 | Emergency (ER) | payer MEDICARE, OTHER ==
[2023-12-21 19:46] VITALS: BP 166/83; PULSE 70; RESP 18; TEMP 98.2; BMI 32.8
[2023-12-21] MEDS ORDERED: BACITRACIN ZINC 15 GM TUBE TOPICAL OINTMENT ONE (20:56)
== END 2023-12-21 21:01 | disposition home or self-care (01) ==
LOC: JERFT 19:36
PROC: 0H9GXZZ Drainage of Left Hand Skin, External Approach (ICD-10-PCS; principal; 2023-12-21)
DX: L03.012 Cellulitis of left finger (principal)
CPT/HCPCS: 10060; 73130-TC-LT-FY; 99283-25

== ENCOUNTER 2025-02-22 17:44 | Inpatient (IN) | payer OTHER ==
[2025-02-22] MEDS ORDERED: ACETAMINOPHEN INJECTION 100 ML ONE (19:06)
[2025-02-22 19:09] LABS: BG HCT 40.0 % (35.4-49); VENOUS BASE EXCESS 0.1 mmol/L (-2-2); VENOUS O2 SATURATION 92.1 % (70-80); VENOUS PCO2 39.6 mmHg (38-52); VENOUS PH 7.412 (7.310-7.410)
[2025-02-22 19:11] LABS: MCHC 34.0 g/dl (32.3-36.5); MEAN CELL VOLUME 95.4 fl (79.0-92.2); MEAN PLT VOLUME 10.1 fl (9.4-12.4); RDW 11.9 % (12.2-16.4)
[2025-02-22] MEDS: SODIUM CHLORIDE 0.9% 500 ML INFUS.BAG IV ONE (19:19)
[2025-02-22] MEDS: ACETAMINOPHEN 1000 MG/100 ML BAG IVPB ONE (19:20)
[2025-02-22 19:22] LABS: INR 1.41 (0.83-1.09); PROTHROMBIN TIME (PATIENT) 15.4 SEC (9.7-13.0)
[2025-02-22 19:25] LABS: ACTIVATED PTT 33.2 SECONDS (25.2-36.5)
[2025-02-22 19:37] LABS: EPI CELLS 7 /uL (0-25.1); HYALINE CASTS 2 /uL (0-3.1); URINE APPEARANCE CLEAR; URINE BACTERIA 4 /uL (0-1359); URINE BILIRUBIN 1+ (NEGATIVE); URINE COLOR DK YELLOW; URINE GLUCOSE (UA) 3+ (NEGATIVE); URINE KETONE TRACE (NEGATIVE); URINE LEUK ESTERASE NEGATIVE (NEGATIVE); URINE NITRITE NEGATIVE (NEGATIVE); URINE PROTEIN 1+ (NEGATIVE); URINE RBC 13 /uL (0-23.9); URINE UROBILINOGEN 0.2 mg/dL (0.2-1.0); URINE WBC 6 /uL (0-25.8)
[2025-02-22 19:49] LABS: GLUCOSE,RANDOM 312.0 mg/dL (74-106); TOT PROT 6.7 g/dl (6.4-8.2)
[2025-02-22 19:50] LABS: CO2 23.0 mmol/L (21-32)
[2025-02-22 19:52] LABS: ALK PHOS 66.0 U/L (40-150)
[2025-02-22 19:54] LABS: LACTIC ACID 2.2 mmol/L (0.4-2.0)
[2025-02-22 19:55] LABS: CREATININE 0.98 mg/dL (0.55-1.3); SGOT/AST 29.0 U/L (5-34); SGPT/ALT 15.0 U/L (0-55)
[2025-02-22] MEDS ORDERED: CEFTRIAXONE 1 GM/50 ML BAG ONE (20:13)
[2025-02-22] MEDS ORDERED: AZITHROMYCIN 500 MG TABLET ONE (20:13)
[2025-02-22] MEDS: CEFTRIAXONE 1,000 MG in DEXTROSE 5%-WATER - 50 ML IVPB ONE (20:21)
[2025-02-22] MEDS: AZITHROMYCIN 250 MG TABLET PO ONE (20:21)
[2025-02-22] MEDS ORDERED: INSULIN ASPART SLIDING SCALE (NOVOLOG) 1 VIAL SQ ONE (20:52)
[2025-02-22] MEDS: INSULIN (NOVOLOG) ASPART 100 UNITS/ML 10ML VIAL SQ ONE (21:00)
[2025-02-23 00:20] VITALS: RESP 18
[2025-02-23 00:48] VITALS: BMI 46.0
[2025-02-23] MEDS: guaiFENesin 200 MG/10 ML 10 ML UNIT-DOSE CUPS PO ONE (02:44)
[2025-02-23] MEDS ORDERED: ACETAMINOPHEN 500 MG TABLET (FP) PO PRN (04:33)
[2025-02-23] MEDS ORDERED: ALBUTEROL SO4 HFA INHALER IH PRN (04:35)
[2025-02-23] MEDS: INSULIN ASPART SLIDING SCALE (NOVOLOG) 1 VIAL SQ SCH (06:03)
[2025-02-23 08:31] LABS: ABSOLUTE IMMATURE GRANULOCYTES 0.05 x10^3/uL (0.0-0.031); BASOPHILS # 0.04 x10^3/uL (0.01-0.08); EOSINOPHIL % 1.0 % (0.8-7.0); EOSINOPHILS # 0.14 x10^3/uL (0.04-0.54); MCHC 33.8 g/dl (32.3-36.5); MEAN CELL VOLUME 96.2 fl (79.0-92.2); MEAN PLT VOLUME 10.6 fl (9.4-12.4); MONOCYTE # 1.27 x10^3/uL (0.30-0.82); MONOCYTE % 9.1 % (5.3-12.2); RDW 12.0 % (12.2-16.4)
[2025-02-23] MEDS: ALBUTEROL SO4 0.083% IH SOL 2.5 MG/3 ML VIAL.NEB. NEB PRN (08:47)
[2025-02-23 08:53] LABS: GLUCOSE,RANDOM 205.0 mg/dL (74-106); TOT PROT 5.9 g/dl (6.4-8.2)
[2025-02-23 08:54] LABS: CO2 27.0 mmol/L (21-32)
[2025-02-23 08:56] LABS: ALK PHOS 61.0 U/L (40-150)
[2025-02-23 08:59] LABS: CREATININE 0.9 mg/dL (0.55-1.3); SGOT/AST 15.0 U/L (5-34); SGPT/ALT 12.0 U/L (0-55)
[2025-02-23] MEDS: MAGNESIUM OXIDE 400 MG TABLET (FP) PO SCH (09:48)
[2025-02-23] MEDS: ENOXAPARIN NA (PORCINE) 40 MG/0.4 ML DISP.SYRIN SQ SCH (09:48)
[2025-02-23] MEDS: CEFTRIAXONE 1 GM in DEXTROSE 5%-WATER - 50 ML IVPB SCH (09:48)
[2025-02-23] MEDS: LISINOPRIL 5 MG TABLET PO SCH (09:48)
[2025-02-23] MEDS: FLUTICASONE/UMECLIDIN/VILANTER(100-62.5-25 TRELEGY ELLIPTA) INAHLER IH SCH (09:48)
[2025-02-23] MEDS: AZITHROMYCIN 500 MG TABLET PO SCH (09:49)
[2025-02-23] MEDS: LEVALBUTEROL HCL 0.31 MG/3 ML VIAL.NEB IH SCH (15:22)
[2025-02-23] MEDS: guaiFENesin/CODEINE 5 ML UNIT-DOSE CUPS PO PRN (18:23)
[2025-02-23] MEDS: INSULIN GLARGINE (LANTUS) 100 UNITS/ML UNITS SQ SCH (21:27)
[2025-02-23] MEDS: ATORVASTATIN CA 40 MG TABLET (FP) PO SCH (21:29)
[2025-02-24 07:38] LABS: MCHC 34.4 g/dl (32.3-36.5); MEAN CELL VOLUME 95.9 fl (79.0-92.2); MEAN PLT VOLUME 10.3 fl (9.4-12.4); RDW 11.7 % (12.2-16.4)
[2025-02-24 07:52] LABS: GLUCOSE,RANDOM 163.0 mg/dL (74-106); TOT PROT 5.8 g/dl (6.4-8.2)
[2025-02-24 07:53] LABS: CO2 26.0 mmol/L (21-32)
[2025-02-24 07:55] LABS: ALK PHOS 69.0 U/L (40-150)
[2025-02-24 07:58] LABS: CREATININE 0.78 mg/dL (0.55-1.3); LDL CHOLESTEROL (ONLY SJRH) 70.0 mg/dL (5-100); SGOT/AST 15.0 U/L (5-34); SGPT/ALT 13.0 U/L (0-55)
[2025-02-24 08:09] LABS: N-TERMINAL BNP 273.8 pg/mL (0-299.9)
[2025-02-24 13:36] VITALS: BP 128/61; PULSE 65; TEMP 97.8
[2025-03-02] MEDS ORDERED: ERGOCALCIFEROL (VIT D2) 50,000 UNIT (1.25 MG) CAPSULE PO SCH (10:00)
== END 2025-02-24 16:47 | disposition home or self-care (01) | DRG 194 ==
LOC: JER 17:44 → JERBED 19:37 → J6S 23:58
PROVIDERS: ADMIT Student in an Organized Health Care Education/Training Program; ATTEND Internal Medicine
DX: J18.9 Pneumonia, unspecified organism (principal); E87.20 Acidosis, unspecified; J98.11 Atelectasis; S82.154D Nondisplaced fracture of right tibial tuberosity, subsequent encounter for closed fracture with routine healing; E11.9 Type 2 diabetes mellitus without complications; I10 Essential (primary) hypertension; J45.909 Unspecified asthma, uncomplicated; E78.5 Hyperlipidemia, unspecified; I48.91 Unspecified atrial fibrillation; E11.40 Type 2 diabetes mellitus with diabetic neuropathy, unspecified; E11.51 Type 2 diabetes mellitus with diabetic peripheral angiopathy without gangrene; T75.89XD Other specified effects of external causes, subsequent encounter; Y99.9 Unspecified external cause status; Y93.9 Activity, unspecified; Y92.89 Other specified places as the place of occurrence of the external cause
CPT/HCPCS: 36415; 71045-TC-FY; 71275-TC; 80053; 80061; 81003; 82803; 82962; 83036; 83605; 83735; 83880; 84100; 84439; 84443; 84484; 85025; 85027; 85379; 85610; 85730; 86850; 86900; 86901; 87040; 87086; 87637-QW; 87899; 93005; 93010; 94640; 97116-GP; 97161-GP; 99285-25; Q9967